=== PATIENT | female | born 1955 | race Caucasian/White ===

== ENCOUNTER → 2018-04-08 12:27 | Outpatient (CLI) | payer OTHER, SELFPAY ==
--- NOTE | 2018-04-08 12:29 | DI.RAD.S_ITS ---
PROCEDURE: XR WRIST LT MIN 3V INDICATIONS: left wrist pain. S/P GLF earlier today,query radial head Fx TECHNIQUE: 4 views of the wrist were acquired. COMPARISON: None. FINDINGS: Bones: Linear lucency traverses the distal radius, with associated bony step-off. Scaphoid view: Negative Soft tissues: No suspicious soft tissue calcifications. IMPRESSION: Mildly displaced distal radial fracture. Dictated by: Niko Wagner M.D. on 04/08/2018 at 13:02 Approved by: Niko Wagner M.D. on 04/08/2018 at 13:03
== END ==
PROVIDERS: Family Provider Physician Assistant; PCP Physician Assistant; Visit Provider Physician Assistant
DX: S52.502A Unspecified fracture of the lower end of left radius, initial encounter for closed fracture (principal)
CPT/HCPCS: 73110

== ENCOUNTER → 2018-07-03 10:31 | Outpatient (CLI) | payer OTHER, SELFPAY | PROVIDERS: Family Provider Physician Assistant; PCP Physician Assistant; Visit Provider Orthopaedic Surgery | DX: S62.102A Fracture of unspecified carpal bone, left wrist, initial encounter for closed fracture (principal); Z53.9 Procedure and treatment not carried out, unspecified reason ==

== ENCOUNTER → 2018-07-14 12:50 | Outpatient (CLI) | payer OTHER, SELFPAY ==
--- NOTE | 2018-07-14 | DI.RAD.S_ITS ---
PROCEDURE: FL FLUOROSCOPY >1HR COMPARISON: [facility] [place], CR, XR WRIST 3+ VIEWS LEFT, 06/14/2018, 14:02. INDICATIONS: LEFT WRIST FRACTURE FINDINGS: The patient was here for a wrist MR arthrogram. Informed consent was obtained. The patient was placed on the floor table in prone position. The radioscaphoid joint was localized under fluoroscopy. The needle entry site was prepped and draped in sterile fashion. 1% lidocaine was used for local anesthesia. After preparation and before needle placement, the patient changed her mind. She will discuss with her doctor before deciding if she wants to have this test. IMPRESSION: Contrast injection was canceled at the patient's request. Dictated by: Jazzmine Perez M.D. on 07/14/2018 at 14:00 Approved by: Jazzmine Perez M.D. on 07/14/2018 at 14:04
== END ==
PROVIDERS: Family Provider Physician Assistant; PCP Physician Assistant; Visit Provider Orthopaedic Surgery
DX: S62.102A Fracture of unspecified carpal bone, left wrist, initial encounter for closed fracture (principal)
CPT/HCPCS: 76000

== ENCOUNTER → 2021-03-16 13:36 | Outpatient (CLI) | payer OTHER, SELFPAY ==
[2021-03-16 14:56] LABS: COVID19 -Nasal RAPID Negative (Negative)
== END ==
PROVIDERS: Family Provider Physician Assistant; PCP Internal Medicine; Visit Provider Nurse Practitioner Family
DX: Z20.822 Contact with and (suspected) exposure to COVID-19 (principal); R09.81 Nasal congestion; R09.89 Other specified symptoms and signs involving the circulatory and respiratory systems
CPT/HCPCS: 87635

== ENCOUNTER 2021-05-12 11:25 | Emergency (ER) | payer OTHER, SELFPAY ==
[2021-05-12 11:35] VITALS: BP 189/87; PULSE 98; RESP 14; TEMP 36.6; O2SAT 98; BMI 25.8
--- NOTE | 2021-05-12 11:59 | DI.RAD.S_ITS ---
PROCEDURE: XR RIBS RT MIN 3V W CXR 1V INDICATIONS: fall down flight of stairs TECHNIQUE: 2 views of the right ribs were acquired, along with a single view chest. COMPARISON: None. FINDINGS: Surgical changes and devices: None. Bones and chest wall: Right 6th and 7th rib fractures. Comminuted fracture of the distal right clavicle. No suspicious bony lesions. Overlying soft tissues appear unremarkable. Lungs and pleura: No pleural effusions or pneumothorax. Lungs appear clear. Mediastinum: Mediastinal contours appear normal. Heart size is normal. IMPRESSION: Right 6th and 7th rib fractures. Right clavicle fracture. Dictated by: Hillary Lopez MD, PhD on 05/12/2021 at 12:26 Approved by: Hillary Lopez MD, PhD on 05/12/2021 at 12:27
--- NOTE | 2021-05-12 12:02 | DI.RAD.S_ITS ---
PROCEDURE: XR SHOULDER RT MIN 2V INDICATIONS: fell down a flight of stairs TECHNIQUE: 2 views of the shoulder were acquired. COMPARISON: None. FINDINGS: Bones: Comminuted fracture of the distal right clavicle. Moderate glenohumeral joint osteoarthritis. No suspicious bony lesions. Visualized ribs appear intact. Soft tissues: No suspicious soft tissue calcifications. IMPRESSION: Segmented, displaced distal right clavicle fracture Dictated by: Hillary Lopez MD, PhD on 05/12/2021 at 12:27 Approved by: Hillary Lopez MD, PhD on 05/12/2021 at 12:28
--- NOTE | 2021-05-12 12:02 | DI.RAD.S_ITS ---
PROCEDURE: XR CLAVICLE RT INDICATIONS: fell down a flight of stairs TECHNIQUE: 2 views of the clavicle were acquired. COMPARISON: None. FINDINGS: Bones: Comminuted fracture of the distal clavicle. Soft tissues: No suspicious soft tissue calcifications. IMPRESSION: Distal right clavicle fracture. Dictated by: Hillary Lopez MD, PhD on 05/12/2021 at 12:25 Approved by: Hillary Lopez MD, PhD on 05/12/2021 at 12:26
--- NOTE | 2021-05-12 12:23 | DI.CT.S_ITS ---
PROCEDURE: CT HEAD/BRAIN WO CON INDICATIONS: fall TECHNIQUE: Noncontrast 4.5 mm thick angled axial sections acquired from the foramen magnum to the vertex, with coronal and sagittal reformats. For radiation dose reduction, the following was used: automated exposure control, adjustment of mA and/or kV according to patient size. COMPARISON: [facility], CT, CT FACIAL BONES WO CON, 05/12/2021, 12:32. FINDINGS: Image quality: Excellent. CSF spaces: Basal cisterns are patent. No extra-axial fluid collections. The ventricles are symmetric in size and shape. Brain: No intracranial bleeds or masses. There is cerebral volume loss for age, with resultant ventricular and sulcal prominence. There are periventricular and deep white matter chronic small vessel ischemic changes. There is intracranial internal carotid artery atherosclerosis. Skull and face: Calvarium is intact. There is a mildly depressed fracture of the right orbital floor which is depressed inferiorly by roughly 4 mm. There is no evidence of extraocular muscular entrapment. Sinuses: Air-fluid level within the right maxillary sinus is present. IMPRESSION: 1. No acute intracranial abnormality. 2. Right orbital floor blowout fracture without evidence of extraocular muscle entrapment. Dictated by: Niko Wagner M.D. on 05/12/2021 at 12:45 Approved by: Niko Wagner M.D. on 05/12/2021 at 12:47
--- NOTE | 2021-05-12 12:23 | DI.CT.S_ITS ---
PROCEDURE: CT CERVICAL SPINE WO CON INDICATIONS: fall yesterday TECHNIQUE: Noncontrast 3 mm thick sections acquired from the skull base to the T4 level. Sagittal and coronal reformats were then constructed. For radiation dose reduction, the following was used: automated exposure control, adjustment of mA and/or kV according to patient size. COMPARISON: None. FINDINGS: Image quality: Excellent. Bones: No fractures or subluxation. There is straightening of the cervical lordosis. Minimal anterolisthesis is demonstrated at C3-C4 and C7-T1. There is minimal retrolisthesis at C5-C6. Moderate degenerative disc disease is demonstrated within the mid to lower cervical spine at C4-C5, C5-C6 and C6-C7 with associated endplate sclerosis, osteophytosis, and uncovertebral joint arthropathy. There is multilevel facet arthropathy including moderate degeneration at C7-T1. Visualized superior ribs are intact. Soft tissues: Prevertebral soft tissues are normal in thickness. No paravertebral hematomas. No apical pneumothoraces. IMPRESSION: 1. No fracture or subluxation. 2. Straightening of the cervical lordosis with multilevel minimal spondylolisthesis. 3. Multilevel degenerative changes including moderate degenerative disc disease in the mid and lower cervical spine. Dictated by: Gilberto Noble M.D. on 05/12/2021 at 12:43 Approved by: Gilberto Noble M.D. on 05/12/2021 at 12:47
--- NOTE | 2021-05-12 12:26 | DI.CT.S_ITS ---
PROCEDURE: CT FACIAL BONES WO CON INDICATIONS: fall RIGHT FACE AREA NOSE BLEED TECHNIQUE: Noncontrast 2.5 mm thick axial images acquired from the mandible through the frontal sinuses, with coronal and sagittal reformatting. For radiation dose reduction, the following was used: automated exposure control, adjustment of mA and/or kV according to patient size. COMPARISON: None. FINDINGS: Image quality: Excellent. Bones and teeth: There is a mildly depressed fracture of the right orbital floor which is disc pressed inferiorly by roughly 4 mm laterally. No evidence of associated extraocular muscle entrapment. Nasal bones and septum are intact. Visualized portions of the mandible demonstrate no fractures or subluxation. Zygomatic arches are intact. Pterygoid plates are intact. Visualized portions of the skull base and auditory canals are intact. Sinuses: Air-fluid level within the right maxillary sinus. Right middle turbinate barbara bullosa. Leftward nasal septum deviation. Mastoid air cells are aerated. Soft tissues: No edema, masses, or fluid collections. No enlarged lymph nodes. No soft tissue lacerations or debris. Vascular: Visualized vascular structures appear normal in the absence of contrast. Bony vascular foramina and canals are intact. IMPRESSION: 1. Right orbital floor blowout fracture without extraocular muscle entrapment. 2. Right maxillary sinus fluid. Dictated by: Niko Wagner M.D. on 05/12/2021 at 12:47 Approved by: Niko Wagner M.D. on 05/12/2021 at 12:49
--- NOTE | 2021-05-12 12:58 | ED_ITS ---
HPI - Fall General Chief Complaint: Trauma Stated Complaint: Poss broken right shoulder/ribs, fell down stairs Time Seen by Provider: 05/12/21 12:50 Source: patient Mode of arrival: Ambulatory History of Present Illness HPI Narrative: Patient is a healthy 65-year-old female who presents after a fall. She says last night she was walking down the stairs with blankets because her pipes froze and heat got turned off, she was carrying blankets when she tripped and fell down half of the staircase at least 4-5 stairs. Landed mostly on her right side. No loss of consciousness. She is not on any anti-platelet or anticoagulation medication. No numbness tingling or weakness. She does have periorbital contusion on the right side but no blurry vision or double vision. Complaining mostly of right shoulder pain. She is also having some right rib pain and hurts to breathe She is ambulatory. Related Data Home Medications Medication Instructions Recorded Confirmed MULTIVITAMIN (Multivitamin #0 08/17/03 04/08/18 -) [VIT C] #0 08/17/03 04/08/18 Previous Rx's Medication Instructions Recorded hydrocodone 5 mg-acetaminophen 325 1 tab PO Q6H PRN #14 tab 05/12/21 mg tablet Allergies Allergy/AdvReac Type Severity Reaction Status Date / Time codeine Allergy Verified 05/12/21 11:45 Review of Systems Review of Systems Narrative: GENERAL: Denies chills, fatigue, malaise, fever, sweats, travel HEENT: Denies sinus pain, ear pain, sore throat, difficulty swallowing, neck pain RESPIRATORY: Denies dyspnea, cough, wheezing, hemoptysis, sputum. CARDIOVASCULAR: Denies chest pain, palpitations, orthopnea, edema GASTROINTESTINAL: Denies nausea, vomiting, abdominal pain, diarrhea, constipation, melena. : Denies dysuria, frequency, incontinence, hematuria, urinary retention, flank pain. MUSCULOSKELETAL: See HPI SKIN: No rash, no erythema, no pruritus NEUROLOGIC: Denies weakness, dizziness, headache, numbness, change in speech, confusion PSYCHIATRIC: No concerning psychosocial issues. 12 point review of systems is negative except for those stated above and HPI Patient History Social History Smoking Status: Never smoker Smoking Status: Never smoker alcohol intake frequency: 0-2 drinks per day Substance Use Type: does not use Exam Initial Vital Signs Initial Vital Signs: Vital Signs Temperature 97.9 F 05/12/21 11:35 Pulse Rate 98 H 05/12/21 11:35 Respiratory Rate 14 05/12/21 11:35 Blood Pressure 189/87 H 05/12/21 11:35 Pulse Oximetry 98 05/12/21 11:35 GENERAL: Well-appearing, well-nourished and in no acute distress. HEENT: Head atraumatic, right periorbital swelling extraocular muscles are intact no step-offs NECK: No vertebral tenderness no step-off full flexion extension and rotation CARDIOVASCULAR: Regular rate and rhythm without murmurs, rubs or gallops. RESPIRATORY: Breath sounds equal bilaterally, no wheezes rales or rhonchi. Tender ribs no paradoxical movement no continue ABDOMEN: Soft, nontender. Normoactive bowel sounds all 4 quadrants. No guarding or rebound. EXTREMITIES: Normal range of motion, no clubbing or edema. Neurovascularly intact. Pelvis stable Right upper extremity all step-off no tenting of skin shoulder pain NEUROLOGICAL: Alert and oriented x4.Normal gait and speech. SKIN: Warm, dry, no laceration, no petechiae, no rashes or lesions. Course Orders Ordered: ED Orders 05/12/21 11:59 XR ribs RT min 3V w CXR1V Stat 05/12/21 12:02 XR clavicle RT Stat XR shoulder RT min 2V Stat 05/12/21 12:23 CT cervical spine wo con Stat CT head/brain wo con Stat 05/12/21 12:26 CT facial bones wo con Stat Vital Signs Vital signs: Vital Signs - 8 hr 05/12/21 15:20 Pulse Rate 85 Blood Pressure 169/91 H Pulse Oximetry 96 MDM - Fall Imaging Data CT scan - head: Radiologist's Impression: PROCEDURE:? CT HEAD/BRAIN WO CON ? INDICATIONS:? fall ? TECHNIQUE:? Noncontrast 4.5 mm thick angled axial sections acquired from the foramen magnum to the vertex, with coronal and sagittal reformats.? For radiation dose reduction, the following was used:? automated exposure control, adjustment of mA and/or kV according to patient size.? ? COMPARISON:? [facility]ated [facility], CT, CT FACIAL BONES WO CON, 05/12/2021, 12:32. ? FINDINGS:? Image quality:? Excellent.? ? CSF spaces:? Basal cisterns are patent.? No extra-axial fluid collections.? The ventricles are symmetric in size and shape.? ? Brain:? No intracranial bleeds or masses.? There is cerebral volume loss for age, with resultant ventricular and sulcal prominence.? There are periventricular and deep white matter chronic small vessel ischemic changes.? There is intracranial internal carotid artery atherosclerosis.? ? Skull and face:? Calvarium is intact.? There is a mildly depressed fracture of the right orbital floor which is depressed inferiorly by roughly 4 mm.? There is no evidence of extraocular muscular entrapment. ? Sinuses:? Air-fluid level within the right maxillary sinus is present. ? IMPRESSION:? 1. No acute intracranial abnormality. 2. Right orbital floor blowout fracture without evidence of extraocular muscle entrapment.? ? ? Dictated by: Niko Wagner M.D. on 05/12/2021 at 12:45 ? ? CT - cervical spine: Radiologist's Impression: PROCEDURE:? CT CERVICAL SPINE WO CON ? INDICATIONS:? fall yesterday ? TECHNIQUE:? Noncontrast 3 mm thick sections acquired from the skull base to the T4 level.? Sagittal and coronal reformats were then constructed.? For radiation dose reduction, the following was used:? automated exposure control, adjustment of mA and/or kV according to patient size.? ? COMPARISON:? None. ? FINDINGS:? Image quality:? Excellent.? ? Bones:? No fractures or subluxation.? There is straightening of the cervical lordosis.? Minimal anterolisthesis is demonstrated at C3-C4 and C7-T1.? There is minimal retrolisthesis at C5-C6.? Moderate degenerative disc disease is demonstrated within the mid to lower cervical spine at C4-C5, C5-C6 and C6-C7 with associated endplate sclerosis, osteophytosis, and uncovertebral joint arthropathy.? There is multilevel facet arthropathy including moderate degeneration at C7-T1.? Visualized superior ribs are intact.? ? Soft tissues:? Prevertebral soft tissues are normal in thickness.? No paravertebral hematomas.? No apical pneumothoraces.? ? IMPRESSION:? ? 1. No fracture or subluxation. ? 2. Straightening of the cervical lordosis with multilevel minimal spondylolisthesis. ? 3. Multilevel degenerative changes including moderate degenerative disc disease in the mid and lower cervical spine.? Dictated by: Gilberto Noble M.D. on 05/12/2021 at 12:43 ? ? CT facial: Radiologist's Impression: PROCEDURE:? CT FACIAL BONES WO CON ? INDICATIONS:? fall RIGHT FACE? AREA NOSE BLEED ? TECHNIQUE:? Noncontrast 2.5 mm thick axial images acquired from the mandible through the frontal sinuses, with coronal and sagittal reformatting.? For radiation dose reduction, the following was used:? automated exposure control, adjustment of mA and/or kV according to patient size.? ? COMPARISON:? None. ? FINDINGS:? Image quality:? Excellent.? ? Bones and teeth:? There is a mildly depressed fracture of the right orbital floor which is disc pressed inferiorly by roughly 4 mm laterally.? No evidence of associated extraocular muscle entrapment.? Nasal bones and septum are intact.? Visualized portions of the mandible demonstrate no fractures or subluxation.? Zygomatic arches are intact.? Pterygoid plates are intact.? Visualized portions of the skull base and auditory canals are intact.? ? Sinuses:? Air-fluid level within the right maxillary sinus.? Right middle turbinate barbara bullosa.? Leftward nasal septum deviation.? Mastoid air cells are aerated.? ? Soft tissues:? No edema, masses, or fluid collections.? No enlarged lymph nodes.? No soft tissue lacerations or debris.? ? Vascular:? Visualized vascular structures appear normal in the absence of contrast.? Bony vascular foramina and canals are intact.? ? IMPRESSION:? 1. Right orbital floor blowout fracture without extraocular muscle entrapment. 2. Right maxillary sinus fluid. ? ? Dictated by: Niko Wagner M.D. on 05/12/2021 at 12:47 ?? Extremity x-ray #1: Radiologist's Impression: PROCEDURE:? XR RIBS RT MIN 3V W CXR 1V ? INDICATIONS:? fall down flight of stairs ? TECHNIQUE: 2 views of the right ribs were acquired, along with a single view chest.? ? COMPARISON:? None. ? FINDINGS:? ? Surgical changes and devices:? None.? ? Bones and chest wall:? Right 6th and 7th rib fractures.? Comminuted fracture of the distal right clavicle.? No suspicious bony lesions.? Overlying soft tissues appear unremarkable.? ? Lungs and pleura:? No pleural effusions or pneumothorax.? Lungs appear clear.? ? Mediastinum:? Mediastinal contours appear normal.? Heart size is normal.? ? IMPRESSION:? Right 6th and 7th rib fractures.? Right clavicle fracture. ? ? Dictated by: Hillary Lopez MD, PhD on 05/12/2021 at 12:26 ? ? Extremity x-ray #2: Radiologist's Impression: PROCEDURE:? XR CLAVICLE RT ? INDICATIONS:? fell down a flight of stairs ? TECHNIQUE:? 2 views of the clavicle were acquired.? ? COMPARISON:? None. ? FINDINGS:? ? Bones:? Comminuted fracture of the distal clavicle. ? Soft tissues:? No suspicious soft tissue calcifications.? ? IMPRESSION:? Distal right clavicle fracture. ? ? Dictated by: Hillary Lopez MD, PhD on 05/12/2021 at 12:25 ? ? Approved by: Hillary Lopez MD, PhD on 05/12/2021 at 12:26 ? Extremity x-ray #3: Radiologist's Impression: PROCEDURE:? XR SHOULDER RT MIN 2V ? INDICATIONS:? fell down a flight of stairs ? TECHNIQUE:? 2 views of the shoulder were acquired.? ? COMPARISON:? None. ? FINDINGS:? ? Bones:? Comminuted fracture of the distal right clavicle.? Moderate glenohumeral joint osteoarthritis.? No suspicious bony lesions.? Visualized ribs appear intact.? ? Soft tissues:? No suspicious soft tissue calcifications.? ? IMPRESSION:? Segmented, displaced distal right clavicle fracture ? ? Dictated by: Hillary Lopez MD, PhD on 05/12/2021 at 12:27 ? ? Approved by: Hillary Lopez MD, PhD on 05/12/2021 at 12:28 ? MDM Narrative Medical decision making narrative: Patient is found to have a right inferior orbital fracture with 4 mm displacement. She has no evidence of entrapment she is able to open her eye completely. No visual disturbance. She also sign of clavicle fracture along with 2 rib fractures. Multiple phone calls to , ultimately patient does need to follow up with [facility] I have called and spoken [facility], they have been given his information, [place] to follow up in 2 weeks Patient is given incentive spirometer for the rib fractures Discharge Plan Departure Patient Disposition: Home Clinical Impression: Fracture of clavicle, right, closed, Multiple rib fractures, Closed blow-out fracture of right orbital floor Instructions: Clavicle Fracture, DI for Rib Fracture, DI for Orbital Fracture Activity Restrictions/Additional Instructions: *You have been diagnosed with clavicle fracture, right orbital blowout fracture, rib fractures 6 and 7 *What to do: You will need to follow up with Ophthalmology for possible surgery of your right eye. They will call to schedule this for you in about 2 weeks. Do not blow nose only dab Keep right arm in sling Use incentive spirometer 10 times every hour to help prevent pneumonia *Continue to take medications as directed [place] 1 tablet every 6 hours needed for severe pain *Follow up with your primary care provider in 2-3 days Call Orthopedics to schedule follow-up for clavicle fracture Ophthalmology clinic at [facility] [phone] or call [phone] *Return to ER if you should have increasing pain, increasing shortness of breath, blurry vision, double vision numbness tingling or weakness or any new, worsening or concerning symptoms CONTROLLED SUBSTANCE DISCHARGE (Narcotoic/benzodiazepine/Flexeril/Phenergan) 1. You have been prescribed narcotic medications, it does have acetaminophen/Tylenol/paracetamol in it, DO NOT TAKE MORE THAN 4,00mg in 24 hours of Tylenol. TRAMADOL DOES NOT CONTAIN TYLENOL 2. Please understand that we cannot provide further refills of narcotics, benzodiazepines or controlled substances through the ED and her pain management will need to be through your provider. 3. While on these medications you cannot drive or operate heavy machinery. 4. You cannot sign legal documents or perform any duties such as this. 5. As long as you're taking opiate pain medications he should also be taking a stool softener such as Colace, Dulcolax, MiraLAX or prune juice, to help avoid constipation. Prescriptions: New hydrocodone-acetaminophen 5-325 mg tablet 1 tab PO Q6H PRN (Reason: pain) Qty: 14 0RF No Action MULTIVITAMIN (Multivitamin -) Qty: 0 0RF [VIT C] Qty: 0 0RF Referrals: [facility] [Provider Group] Roosevelt Gardner MD [Primary Care Provider] -
--- NOTE | 2021-05-12 13:38 | PC.NURSE ---
pt has bruising between rt shoulder and clavicle.
--- NOTE | 2021-05-12 15:19 | PC.NURSE ---
Education for incentive spirometry performed by RT. Reinforced education with patient at discharge.
[2021-05-12 15:20] VITALS: BP 169/91; PULSE 85; O2SAT 96
--- NOTE | 2021-05-14 08:43 | PC.NURSE ---
Patient called this morning stating [facility] was unable to see her and she is having new/worsening eye symptoms. This RN called [facility] scheduling and advised the gaming host that pt needed to be seen in the very near future. [facility] advised this RN that they are scheduled out to September but a request had been placed directly with the eye center to work patient in earlier. Advised to wait for [facility] to contact pt in the next 24-72 hrs. Our provider paged the transfer center to have a to to expedite appointment. Advised pt to go to [facility] ED for new/worsening symptoms.
--- NOTE | 2021-05-16 10:22 | PC.NURSE ---
Patient called needing prescription for pain medication sent to another pharmacy. Dr. Edge reviewed and sent script to [facility].
== END 2021-05-12 15:20 | disposition home or self-care (01) ==
PROVIDERS: Emergency Provider Emergency Medicine; Family Provider Physician Assistant; PCP Internal Medicine
DX: S42.031A Displaced fracture of lateral end of right clavicle, initial encounter for closed fracture (principal); S22.41XA Multiple fractures of ribs, right side, initial encounter for closed fracture; S02.31XA Fracture of orbital floor, right side, initial encounter for closed fracture; W10.9XXA Fall (on) (from) unspecified stairs and steps, initial encounter
CPT/HCPCS: 70450; 70486; 71101; 72125; 73000; 73030; 99284

== ENCOUNTER 2021-05-18 17:58 | Emergency (ER) | payer OTHER, SELFPAY ==
[2021-05-18 18:51] VITALS: BP 190/99; PULSE 89; RESP 20; TEMP 37.1; O2SAT 98; BMI 24.8
== END 2021-05-18 19:54 | disposition left against medical advice (07) ==
PROVIDERS: Emergency Provider Emergency Medicine; Family Provider Physician Assistant; PCP Internal Medicine
DX: Z53.21 Procedure and treatment not carried out due to patient leaving prior to being seen by health care provider (principal)
CPT/HCPCS: 99281

== ENCOUNTER → 2021-07-01 10:48 | Outpatient (CLI) | payer OTHER, SELFPAY | PROVIDERS: Family Provider Physician Assistant; PCP Internal Medicine; Referring Provider Internal Medicine; Visit Provider Internal Medicine | DX: Z13.820 Encounter for screening for osteoporosis (principal); M85.88 Other specified disorders of bone density and structure, other site; Z78.0 Asymptomatic menopausal state; E07.9 Disorder of thyroid, unspecified; Z82.62 Family history of osteoporosis | CPT/HCPCS: 77080 ==

== ENCOUNTER 2022-02-15 13:10 | Emergency (ER) | payer OTHER, SELFPAY ==
[2022-02-15 13:14] VITALS: PULSE 78; RESP 18; TEMP 36.4; O2SAT 99
--- NOTE | 2022-02-15 13:17 | DI.RAD.S_ITS ---
PROCEDURE: XR CHEST 2V INDICATIONS: cough, COVID+ TECHNIQUE: 2 views of the chest were acquired. COMPARISON: None. FINDINGS: Surgical changes and devices: None. Lungs and pleura: Lungs are clear. No pleural effusions or pneumothorax. Mediastinum: Mediastinal contours are normal. Heart size is normal. Bones and chest wall: No suspicious bony abnormalities. Age-appropriate bony degenerative changes are seen. Accentuated thoracic kyphosis is seen. Mild dextroconvex scoliotic curvature is seen. Soft tissues appear unremarkable. IMPRESSION: Clear lungs, without infiltrates. If there is clinical concern for a developing pulmonary process, a short-term followup chest series (with PA and lateral views, performed in deep inspiration) is suggested for further evaluation. Dictated by: Thien Pacheco M.D. on 02/15/2022 at 12:50 Approved by: Thien Pacheco M.D. on 02/15/2022 at 12:54
[2022-02-15] MEDS: VALSARTAN 80 MG TABLET PO (14:03)
[2022-02-15 15:47] VITALS: BP 202/100; PULSE 73; RESP 22; O2SAT 99
[2022-02-15] MEDS: hydrOXYzine pamoate 25 MG CAPSULE PO (17:21)
[2022-02-15 17:22] VITALS: BP 189/99; PULSE 67; RESP 18; O2SAT 98
--- NOTE | 2022-02-15 17:43 | ED.URI ---
HPI - URI/Sore Throat <Veronique Mota, [facility] - Last Filed: 02/15/22 18:06> General Chief Complaint: Upper Respiratory Symptoms Stated Complaint: COVID + Time Seen by Provider: 02/15/22 16:06 Source: patient Mode of arrival: Ambulatory History of Present Illness HPI Narrative: This is a 66-year-old female without significant medical history who presents to the emergency complaining of COVID positive test yesterday, she states that she is very anxious and stressed out that she exposed her elderly parents over the weekend to COVID and she returned home yesterday and tested positive at the airport for to home. Patient denies any shortness of breath, chest pain, dizziness, weakness. She endorses congestion, phlegm when she coughs, denies fever, denies history of asthma, COPD, smoking, diabetes, hypertension or other significant illness. She is COVID vaccinated and boosted, states last vaccine was in October 2020. She denies nausea, vomiting, diarrhea. 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 Patient also states that she had elevated blood pressure this morning, states it was over 200 systolic, she was very anxious about it and has not taken her prescribed antihypertensive, valsartan 80 mg yet today. She states she has not been taking it lately, she endorses that she is under lot of stress. Related Data Home Medications Medication Instructions Recorded Confirmed MULTIVITAMIN (Multivitamin ##0 08/17/03 04/08/18 -) [VIT C] ##0 08/17/03 04/08/18 Previous Rx's Medication Instructions Recorded hydrocodone 5 mg-acetaminophen 325 1 tab PO Q6H PRN pain #14 tabs 05/12/ mg tablet hydrocodone 5 mg-acetaminophen 325 1 tab PO BEDTIME PRN pain #14 tabs 05/14/21 mg tablet hydrocodone 5 mg-acetaminophen 325 1 tab PO BEDTIME PRN pain #14 tabs 05/14/ mg tablet ondansetron 4 mg disintegrating 4 mg PO Q8H PRN nausea and 05/14/21 tablet vomiting #20 tabs ondansetron 4 mg disintegrating 4 mg PO Q8H PRN nausea and 05/14/21 tablet vomiting #20 tabs loratadine 10 mg chewable tablet 10 mg PO Q12H PRN congestion #20 02/15/22 (Claritin) tabs lorazepam 1 mg tablet 0.5 mg PO Q4HR PRN anxiety #10 tabs 02/15/22 Allergies Allergy/AdvReac Type Severity Reaction Status Date / Time codeine Allergy Verified 05/18/21 18:51 Review of Systems <TRENTON Montes De Oca - Last Filed: 02/15/22 18:06> Review of Systems Narrative: Review of systems is negative for acute abnormalities unless otherwise noted in HPI Patient History <TRENTON Montes De Oca - Last Filed: 02/15/22 18:06> Social History Smoking Status: Never smoker Smoking Status: Never smoker alcohol intake frequency: 0-2 drinks per day Substance Use Type: does not use Exam <TRENTON Montes De Oca - Last Filed: 02/15/22 18:06> Narrative Exam Narrative: Reviewed vitals signs and nursing notes. General: cooperative, comfortable, in no acute distress, well groomed HEENT: symmetrical facial expressions, moist mucous membranes Cardiovascular: regular rate and rhythm, no peripheral edema, warm extremities, hypertensive Respiratory: normal effort, able to speak in complete sentences, without wheezing, stridor, or abnormal breath sounds. No retractions or tachypnea. GI: abdomen soft, nontender to palpation, nondistended, without masses, rebound tenderness or exquisite tenderness with exam. MSK: moves all extremities, neurovascularly intact, no weakness, normal tone Skin: brisk capillary refill, without pallor or erythema Neuro: normal speech and cognition, A&O x3, ambulatory, clear speech without Neuro deficits Psych: mental status is grossly normal, congruent mood, anxious affect, pleasant and cooperative Initial Vital Signs Initial Vital Signs: Vital Signs Temperature 97.5 F L 02/15/22 13:14 Pulse Rate 78 02/15/22 13:14 Respiratory Rate 18 02/15/22 13:14 Pulse Oximetry 99 02/15/22 13:14 Oxygen Delivery Method 02/15/22 13:14 <Hannah Edge MD - Last Filed: 02/15/22 18:49> Initial Vital Signs Initial Vital Signs: Vital Signs Temperature 97.5 F L 02/15/22 13:14 Pulse Rate 78 02/15/22 13:14 Respiratory Rate 18 02/15/22 13:14 Pulse Oximetry 99 02/15/22 13:14 Oxygen Delivery Method 02/15/22 13:14 Course <TRENTON Montes De Oca - Last Filed: 02/15/22 18:06> Orders Ordered: ED Orders 02/15/22 13:17 Chest [XR chest 2V] Stat Discontinued Medications Hydroxyzine Pamoate (Hydroxyzine Pamoate 25 Mg Capsule) 25 mg PO NOW ONE Stop: 02/15/22 16:45 Last Admin: 02/15/22 17:21 Dose: 25 mg Documented By: DONNY Valsartan (Valsartan 80 Mg Tablet) 80 mg PO NOW ONE Stop: 02/15/22 13:47 Last Admin: 02/15/22 14:03 Dose: 80 mg Documented By: DONNY Vital Signs Vital signs: Vital Signs - 8 hr 02/15/22 13:14 02/15/22 15:47 02/15/22 17:22 Temperature 97.5 F L Pulse Rate 78 73 67 Respiratory Rate 18 22 18 Blood Pressure 202/100 H 189/99 H Pulse Oximetry 99 99 98 Oxygen Delivery Method Room Air Room Air Room Air <Hannah Edge MD - Last Filed: 02/15/22 18:49> Orders Ordered: ED Orders 02/15/22 13:17 Chest [XR chest 2V] Stat Discontinued Medications Hydroxyzine Pamoate (Hydroxyzine Pamoate 25 Mg Capsule) 25 mg PO NOW ONE Stop: 02/15/22 16:45 Last Admin: 02/15/22 17:21 Dose: 25 mg Documented By: DONNY Valsartan (Valsartan 80 Mg Tablet) 80 mg PO NOW ONE Stop: 02/15/22 13:47 Last Admin: 02/15/22 14:03 Dose: 80 mg Documented By: DONNY Vital Signs Vital signs: Vital Signs - 8 hr 02/15/22 13:14 02/15/22 15:47 02/15/22 17:22 Temperature 97.5 F L Pulse Rate 78 73 67 Respiratory Rate 18 22 18 Blood Pressure 202/100 H 189/99 H Pulse Oximetry 99 99 98 Oxygen Delivery Method Room Air Room Air Room Air MDM - URI/Sore Throat <Veronique Mota [facility] - Last Filed: 02/15/22 18:06> Imaging Data Chest x-ray: Radiologist's Impression: PROCEDURE:? XR CHEST 2V ? INDICATIONS:? cough, COVID+ ? TECHNIQUE:? 2 views of the chest were acquired.? ? COMPARISON:? None. ? FINDINGS:? ? Surgical changes and devices:? None.? ? Lungs and pleura:? Lungs are clear.? No pleural effusions or pneumothorax.? ? Mediastinum:? Mediastinal contours are normal.? Heart size is normal.? ? Bones and chest wall:? No suspicious bony abnormalities.? Age-appropriate bony degenerative changes are seen.? Accentuated thoracic kyphosis is seen.? Mild dextroconvex scoliotic curvature is seen. ? ? Soft tissues appear unremarkable.? ? ? IMPRESSION:? Clear lungs, without infiltrates. ? If there is clinical concern for a developing pulmonary process, a short-term followup chest series (with PA and lateral views, performed in deep inspiration) is suggested for further evaluation. ? ? ? Dictated by: Thien Pacheco M.D. on 02/15/2022 at 12:50 ? ? Approved by: Thien Pacheco M.D. on 02/15/2022 at 12:54 ? [facility] Narrative Medical decision making narrative: This is a 61-year-old female without significant medical history who presents to the emergency department after testing COVID (+) yesterday, she is on day 2 of symptoms without hypoxia, respiratory distress, dehydration, or focal exam to suggest secondary bacterial infection. Discussed CDC guidelines for quarantine, mask wearing, physical distancing, and infection prevention measures such as frequent handwashing. Discussed supportive treatments: Tylenol/Motrin as needed for pain/fever. OTC decongestant medications and/or antihistamines for symptomatic relief. Maintain adequate fluid intake. This has hypertension, encouraged to your medications as prescribed, I gave her a short prescription of lorazepam to use as needed for anxiety and muscle aches. She has not been taking her antihypertensive and now she has, her blood pressure has come down to systolic of 180s, I anticipate this will also go down when she goes home and can take a lorazepam and relax for the evening. Follow-up with PCP as directed. Return to clinic/ER instructions discussed for new, not improving, or worsening symptoms. All questions answered. Discharge Plan Departure Patient Disposition: Home Clinical Impression: COVID-19, Anxiety Hypertension Qualifiers: Hypertension type: unspecified Qualified Code(s): I10 - Essential (primary) hypertension Instructions: COVID-19 Activity Restrictions/Additional Instructions: *You have been diagnosed with COVID-19. Today is day 2 of your symptoms, please stay hydrated, rest take deep breaths and do not blame yourself for exposing her parents. This can happen to anyone and does every day. I am sorry that you feel to blame. Your chest x-ray shows clear lungs without any signs of pneumonia, your oxygen level is perfect at 100% and her heart rate is nice and slow. Please take Tylenol 650 mg every 6 hours as needed for pain, you may take ibuprofen as well. For muscle aches and for anxiety, please take your 0.5-1 mg of lorazepam. Take hot showers as needed for muscle aches, take Claritin as needed for congestion and Mucinex if your cough is productive and thick. I hope you feel better soon. Please return to the emergency department if you have worsening symptoms or concerns for hospitalization, we will give you Juan ABADFREDA at that time. Thank you for trusting us with your care, I hope you feel better soon. *What to do: *Please continue to take your regular medications as directed. [ x] New medication prescriptions sent to your pharmacy: [[facility]] [ ] New medication written as a paper prescription [ ] No new medications given *Please follow up with your primary care provider in 2-3 days, call for an appointment. Let them know you were seen in the Emergency Department and that we asked that you be seen for follow-up. We will electronically transmit a record of today's note if your PCP is in our system *If you do not have a primary care provider please contact [phone] to establish care with one of the [facility] primary care providers. *Return to Emergency Department if you should have any new, worsening, or concerning symptoms, such as [fever greater than 101F, chills, worsening pain, persistent vomiting or other bothersome symptoms]. Prescriptions: New lorazepam 1 mg tablet 0.5 mg PO Q4HR PRN (Reason: anxiety) Qty: 10 0RF Claritin 10 mg tablet,chewable 10 mg PO Q12H PRN (Reason: congestion) Qty: 20 0RF No Action MULTIVITAMIN (Multivitamin -) Qty: 0 [VIT C] Qty: 0 hydrocodone-acetaminophen 5-325 mg tablet 1 tab PO Q6H PRN (Reason: pain) Qty: 14 0RF hydrocodone-acetaminophen 5-325 mg tablet 1 tab PO BEDTIME PRN (Reason: pain) Qty: 14 0RF ondansetron 4 mg tablet,disintegrating 4 mg PO Q8H PRN (Reason: nausea and vomiting) Qty: 20 0RF hydrocodone-acetaminophen 5-325 mg tablet 1 tab PO BEDTIME PRN (Reason: pain) Qty: 14 0RF ondansetron 4 mg tablet,disintegrating 4 mg PO Q8H PRN (Reason: nausea and vomiting) Qty: 20 0RF Referrals: Cornelius Bruce MD [Primary Care Provider] - Visit Report Forms: Patient Portal/API <Hannah Edge MD - Last Filed: 02/15/22 18:49> Cosign ED Attending Cosmarieature Attestation: I was immediately available in the department for consultation throughout this patient's visit. I agree with documentation as above. Hannah Edge MD
== END 2022-02-15 17:22 | disposition home or self-care (01) ==
PROVIDERS: Emergency Provider Nurse Practitioner Critical Care Medicine; Family Provider Physician Assistant; PCP Internal Medicine
DX: U07.1 COVID-19 (principal); F41.9 Anxiety disorder, unspecified; I10 Essential (primary) hypertension
CPT/HCPCS: 71046; 99283

== ENCOUNTER → 2022-10-07 17:57 | Outpatient (CLI) | payer OTHER, SELFPAY | PROVIDERS: Family Provider Physician Assistant; PCP Internal Medicine; Visit Provider Nurse Practitioner Family | DX: L98.9 Disorder of the skin and subcutaneous tissue, unspecified (principal) | CPT/HCPCS: 87070; 87075; 87205 ==

== ENCOUNTER → 2023-04-26 16:33 | Outpatient (CLI) | payer OTHER, SELFPAY ==
--- NOTE | 2023-04-26 | DI.MG.S_ITS ---
BILATERAL DIGITAL SCREENING MAMMOGRAM 3D/2D WITH CAD: 04/26/2023 CLINICAL: Routine screening. Comparison is made to exams dated: 12/14/2013 mammogram, 06/30/2011 mammogram, and 11/29/2008 mammogram - [facility]. There are scattered areas of fibroglandular density in both breasts (category b / 25%-50% glandular tissue). Current study was also evaluated with a Computer Aided Detection (CAD) system. No significant masses, calcifications, or other findings are seen in either breast. There has been no significant interval change. IMPRESSION: NEGATIVE There is no mammographic evidence of malignancy. A 1 year screening mammogram is recommended. Based on the Tyrer Cuzick model (a risk assessment model) the patient's lifetime risk is 6.6% and her 10 year risk is 3.6%. According to the ACR, ACS, and NCCN guidelines, an annual breast MRI exam along with mammogram is recommended if the patient's lifetime risk is 20% or greater. This exam was interpreted at Station ID: [id number]. NOTE: For mammograms, a report in lay terms will be sent to the patient. Approximately 15% of breast malignancies will not be visualized mammographically. In the management of a palpable breast mass, a negative mammogram must not discourage biopsy of a clinically suspicious lesion. Electronically Signed By: Lainey rizzo/caprice:04/27/2023 14:22:54 letter sent: Normal Exam ACR BI-RADS Category 1: Negative [id number]
--- NOTE | 2023-04-26 16:37 | DI.US.S_ITS ---
PROCEDURE: US PELVIC COMPLETE INDICATIONS: Pelvic pain TECHNIQUE: Real-time scanning was performed of the pelvic organs, with image documentation. Additional endovaginal scanning was necessary due to incomplete visualization of the adnexal and endometrial structures by transabdominal scanning. COMPARISON: None. FINDINGS: Uterus: Uterus is retroverted and small in size at 5.3 x 3.4 x 2.7 cm. The myometrium is heterogeneous. The endometrium measures approximately 1.5 mm. There is trace endometrial fluid with a questionable isoechoic lesion versus irregular wall at the fundus measuring 2.4 mm with no internal vascularity (series 1, image 30, 31). There are nabothian cysts. The cervix and vagina is otherwise normal. Ovaries: The ovaries are not well seen, limiting evaluation. Other: No pathologic free abdominal or pelvic fluid. IMPRESSION: 1. Uterus is retroverted and small in size measuring 5.3 x 3.4 x 2.7 cm. 2. Endometrium measures approximately 1.5 mm. Trace endometrial fluid with a questionable isoechoic lesion versus irregular wall of the fundus measuring 2.4 mm with no internal vascularity. Consider a short interval follow-up pelvic ultrasound in 3 months for further evaluation. Alternatively, an MRI of the pelvis can be performed. 3. Bilateral ovaries are not well seen, limiting evaluation. Dictated by: Mercy Santamaria M.D. on 04/27/2023 at 10:46 Approved by: Mercy Santamaria M.D. on 04/27/2023 at 10:56
== END ==
PROVIDERS: Family Provider Physician Assistant; PCP Internal Medicine; Referring Provider Obstetrics & Gynecology; Visit Provider Obstetrics & Gynecology
DX: Z12.31 Encounter for screening mammogram for malignant neoplasm of breast (principal); R10.2 Pelvic and perineal pain
CPT/HCPCS: 76830; 76856; 77063; 77067

== ENCOUNTER 2023-11-18 14:15 | Emergency (ER) | payer OTHER, SELFPAY ==
[2023-11-18] VITALS (9 sets, daily range): BP systolic 136–168; BP diastolic 67–84; PULSE 67–82; RESP 16–21; TEMP 36.8; O2SAT 91–100; BMI 25.7
--- NOTE | 2023-11-18 14:37 | DI.CT.S_ITS ---
PROCEDURE: CT FACIAL BONES WO CON INDICATIONS: fall 2 days ago on cement landed on face. TECHNIQUE: Noncontrast 2.5 mm thick axial images acquired from the mandible through the frontal sinuses, with coronal and sagittal reformatting. For radiation dose reduction, the following was used: automated exposure control, adjustment of mA and/or kV according to patient size. COMPARISON: None. FINDINGS: Image quality: Excellent. Bones and teeth: Orbital bartlett are intact. Sinus bartlett show no fracture or deformity. Nasal bones and septum are intact. Visualized portions of the mandible demonstrate no fractures or subluxation. Zygomatic arches are intact. Pterygoid plates are intact. Visualized portions of the skull base and auditory canals are intact. Sinuses: Paranasal sinuses are aerated, without fluid levels, mucosal thickening, or mucoceles. Mastoid air cells are aerated. Soft tissues: No edema, masses, or fluid collections. No enlarged lymph nodes. No soft tissue lacerations or debris. Vascular: Visualized vascular structures appear normal in the absence of contrast. Bony vascular foramina and canals are intact. IMPRESSION: No displaced facial bone fracture or mandibular fracture. Dictated by: Robert Aguiar M.D. on 11/18/2023 at 15:55 Approved by: Robert Aguiar M.D. on 11/18/2023 at 15:57
--- NOTE | 2023-11-18 14:37 | DI.CT.S_ITS ---
PROCEDURE: CT HEAD/BRAIN WO CON INDICATIONS: fall 2 days ago on cement landed on face. TECHNIQUE: Noncontrast 4.5 mm thick angled axial sections acquired from the foramen magnum to the vertex, with coronal and sagittal reformats. For radiation dose reduction, the following was used: automated exposure control, adjustment of mA and/or kV according to patient size. COMPARISON: None. FINDINGS: Image quality: Diagnostic. CSF spaces: Basal cisterns are patent. No extra-axial fluid collections. The ventricles are symmetric in size and shape. Brain: No intracranial bleeds or masses. There is cerebral volume loss for age, with resultant ventricular and sulcal prominence. There are periventricular and deep white matter chronic small vessel ischemic changes. There is intracranial internal carotid artery atherosclerosis. Skull and face: Calvarium and visualized facial bones appear intact, without suspicious lesions. Sinuses: Visualized sinuses and mastoids are clear. IMPRESSION: No acute intracranial pathology. Dictated by: Robert Aguiar M.D. on 11/18/2023 at 15:53 Approved by: Robert Aguiar M.D. on 11/18/2023 at 15:54
--- NOTE | 2023-11-18 14:37 | DI.CT.S_ITS ---
PROCEDURE: CT CERVICAL SPINE WO CON INDICATIONS: fall 2 days ago on cement landed on face. TECHNIQUE: Noncontrast 3 mm thick sections acquired from the skull base to the T4 level. Sagittal and coronal reformats were then constructed. For radiation dose reduction, the following was used: automated exposure control, adjustment of mA and/or kV according to patient size. COMPARISON: None. FINDINGS: Image quality: Excellent. Bones: No fractures or dislocations. Visualized superior ribs are intact. Cervical spondylosis is centered at C4-C5 through C6-C7. Chronic disc height loss and posterior disc post osteophyte plus uncovertebral joint hypertrophy. There is bilateral bony foraminal narrowing at all of these levels. Soft tissues: Prevertebral soft tissues are normal in thickness. No paravertebral hematomas. No apical pneumothoraces. IMPRESSION: 1. No acute cervical fracture or dislocation. 2. Cervical Cervical spondylosis. Dictated by: Robert Aguiar M.D. on 11/18/2023 at 15:51 Approved by: Robert Aguiar M.D. on 11/18/2023 at 15:53
--- NOTE | 2023-11-18 17:23 | ED_ITS ---
HPI - Fall General Chief Complaint: Fall Stated Complaint: fell, hit head,dizziness t-2 Time Seen by Provider: 11/18/23 17:19 Source: patient, RN notes reviewed and old records reviewed Mode of arrival: Ambulatory Limitations: no limitations History of Present Illness HPI Narrative: 67-year-old female with history of hypertension, prior traumatic subdural hematoma along with blowout fracture from a fall patient presents with complaint of fall 2 days ago. She was getting off a boat had a lot of objects in her arms tripped on a concrete dock and fell forward unable to catch herself and hit her right. She states she was not knocked out. She has had some mild headache for the past 2 days, she has felt a little nauseated and dizzy been able to do normal activities. She states no vision changes. No difficulty with movement of her eye. No neck pain. She states no chest pain or shortness of breath no other GI or urinary symptoms no numbness tingling or weakness. She is little concerned about bleed as she has had a prior traumatic subdural and a blowout fracture of her orbit in the past after a similar type fall. Patient was encouraged by family to be evaluated and presents. She states no daily a nticoagulants. She does note she is still taking telmisartan but is out of her HCTZ 12.5 mg tablets in amlodipine 5 mg tablets. She has an allergy to codeine. No tobacco, occasional alcohol, no recreational drugs. Related Data Home Medications Medication Instructions Recorded Confirmed MULTIVITAMIN (Multivitamin ##0 08/17/03 04/08/18 -) [VIT C] ##0 08/17/03 04/08/18 amlodipine 5 mg tablet 5 mg PO DAILY 04/19/23 04/19/23 hydrochlorothiazide 12.5 mg tablet 12.5 mg PO DAILY 04/19/23 04/19/23 telmisartan 40 mg tablet 40 mg PO DAILY 04/19/23 04/19/23 Previous Rx's Medication Instructions Recorded ondansetron 4 mg disintegrating 4 mg PO Q8H PRN nausea and 05/14/21 tablet vomiting #20 tabs ondansetron 4 mg disintegrating 4 mg PO Q8H PRN nausea and 05/14/21 tablet vomiting #20 tabs mupirocin 2 % topical ointment 1 applic topical TID #15 grams 10/07/22 estradiol 0.01% (0.1 mg/gram) 1 g vaginal 3XW #42.5 grams 04/27/23 vaginal cream amlodipine 5 mg tablet 5 mg PO DAILY #30 tabs 11/18/23 hydrochlorothiazide 12.5 mg tablet 12.5 mg PO DAILY #30 tabs 11/18/23 Allergies Allergy/AdvReac Type Severity Reaction Status Date / Time codeine Allergy Verified 11/18/23 14:34 Review of Systems Review of Systems ROS Unobtainable: All systems reviewed & are unremarkable except as noted in HPI and below Patient History Social History Smoking Status: Never smoker Smoking Status: Never smoker alcohol intake frequency: 0-2 drinks per day Substance Use Type: does not use Exam Narrative Exam Narrative: GEN: Patient appears in mild distress. HEAD: No evidence of trauma, patient does have periorbital ecchymosis of the right eye, no gasca sign bilaterally. NECK: Nontender, painless range of motion, trachea midline Negative Nexus criteria, no midline line tenderness, distracting injury, altered mental status, neuro deficit, recent EtOH. EYES: PERRLA, EOMI ENT: External inspection normal other than above, no bony tenderness. Trachea is midline, TM's are normal no hemotypanum, Nares are clear, no septal hematoma, no dental or oral injury, airway is normal and with normal occlusion, No bony tenderness RESP: Chest is nontender and has symmetric movement, no ecchymosis, breath sounds are normal no crackles, wheezes or rales CVS: Heart sounds are normal, no murmur noted, No JVD. ABG/GI: Nontender, soft, normal bowel sounds, no distention, no organomegaly, pelvic rock is negative NEURO: Oriented AOx3, neuro is grossly intact, sensation and motor is normal all 4 extremities moving, cranial nerves II through XII are intact, GCS is 15 PSYCH: Normal mood and affect SKIN: Intact, warm and dry, no crepitus and without decubitus BACK: No CVA tenderness, no vertebral tenderness, no step-off's, no crepitus EXT: Atraumatic, hips are nontender, no pedal edema, normal color and temperature, normal range of motion of extremities with normal tendon exam, 2+ pulses in all four extremities Initial Vital Signs Initial Vital Signs: Vital Signs Temperature 98.2 F 11/18/23 14:28 Pulse Rate 82 11/18/23 14:28 Respiratory Rate 16 11/18/23 14:28 Blood Pressure 158/84 H 11/18/23 14:28 Pulse Oximetry 100 11/18/23 14:28 Oxygen Delivery Method Room Air 11/18/23 14:[address] [place] [address] Head Rule Age <16 years old: No Any sign of basilar skull fracture (hemotympanum, raccoon eyes, Gasca's sign, CSF geo-/rhinorrhea): Yes (Right periorbital ecchymosis) Age greater or equal to 65 years: Yes GCS [place] coma scale eye opening: Spontaneous [place] coma scale verbal response: Orientated [place] coma scale motor response: Obey commands [place] coma scale total score: 15 Course Orders Ordered: ED Orders 11/18/23 14:37 CT cervical spine wo con Stat CT facial bones wo con Stat CT head/brain wo con Stat Vital Signs Vital signs: Vital Signs - 8 hr 11/18/23 14:28 11/18/23 15:06 11/18/23 15:07 Temperature 98.2 F Pulse Rate 82 78 Respiratory Rate 16 Blood Pressure 158/84 H 153/84 H Pulse Oximetry 100 91 Oxygen Delivery Method Room Air 11/18/23 15:07 11/18/23 15:30 11/18/23 15:30 Temperature Pulse Rate 79 67 Respiratory Rate 16 Blood Pressure 136/73 Pulse Oximetry 98 97 Oxygen Delivery Method 11/18/23 16:00 11/18/23 16:01 11/18/23 16:01 Temperature Pulse Rate 75 74 Respiratory Rate Blood Pressure 168/83 H Pulse Oximetry 99 99 Oxygen Delivery Method 11/18/23 16:43 11/18/23 16:43 11/18/23 17:00 Temperature Pulse Rate 73 70 Respiratory Rate 16 Blood Pressure 147/76 H Pulse Oximetry 96 Oxygen Delivery Method 11/18/23 17:00 11/18/23 17:30 11/18/23 17:30 Temperature Pulse Rate 68 Respiratory Rate 21 Blood Pressure 143/67 H 158/79 H Pulse Oximetry 96 Oxygen Delivery Method MDM - Fall MDM Narrative Medical decision making narrative: 67-year-old female with a history of prior traumatic subdural on no anticoagulation, patient had a fall with periorbital ecchymosis over the right. Does describe some headache, nausea and dizziness no vomiting no loss of consciousness she has been ambulating in participating in normal activities. Head CT, CT facial bone and CT cervical spine are negative for acute change, cervical spondylosis is noted on CT facial bone. Patient's C-spine was cleared. She does note she is out of her HCTZ as well as amlodipine and discussed we will refill these. She does have her telmisartan available. Discharge Plan Departure Patient Disposition: Home Clinical Impression: Traumatic periorbital ecchymosis of right eye, Fall, Concussion Instructions: DI for Concussion Activity Restrictions/Additional Instructions: Follow up as needed. Your imaging including your head CT, facial bones and cervical spine do not show any bleed or fractures. You likely have a little bit of a concussion. Continue to advance your activity as tolerated. You can continue with Tylenol and/or Aleve as needed for headaches. A refill for your blood pressure medication including your amlodipine and hydrochlorothiazide were sent to [facility] in [place] Please return for severe headaches new neck pain, sudden vision changes, new numbness tingling or weakness, loss of bowel or bladder control, persistent vomiting, chest pain or shortness of breath or other new or concerning changes. Prescriptions: New amlodipine 5 mg tablet 5 mg PO DAILY Qty: 30 0RF hydrochlorothiazide 12.5 mg tablet 12.5 mg PO DAILY Qty: 30 0RF No Action mupirocin 2 % ointment 1 applic topical TID Qty: 15 0RF MULTIVITAMIN (Multivitamin -) Qty: 0 [VIT C] Qty: 0 telmisartan 40 mg tablet 40 mg PO DAILY amlodipine 5 mg tablet 5 mg PO DAILY hydrochlorothiazide 12.5 mg tablet 12.5 mg PO DAILY estradiol 0.01 % (0.1 mg/gram) cream 1 g vaginal 3XW Qty: 42.5 12RF Rx Instructions: Apply 1 g PV hs x7 days, then PV hs 3 nights weekly ondansetron 4 mg tablet,disintegrating 4 mg PO Q8H PRN (Reason: nausea and vomiting) Qty: 20 0RF ondansetron 4 mg tablet,disintegrating 4 mg PO Q8H PRN (Reason: nausea and vomiting) Qty: 20 0RF Referrals: Trish Bowen PA-C [Primary Care Provider] - Stand Alone Forms: Patient Portal/API
== END 2023-11-18 18:00 | disposition home or self-care (01) ==
PROVIDERS: Emergency Provider Emergency Medicine; Family Provider Physician Assistant; PCP Student in an Organized Health Care Education/Training Program
DX: S06.0X0A Concussion without loss of consciousness, initial encounter (principal); S00.11XA Contusion of right eyelid and periocular area, initial encounter; W01.10XA Fall on same level from slipping, tripping and stumbling with subsequent striking against unspecified object, initial encounter
CPT/HCPCS: 70450; 70486; 72125; 99281; 99284

== ENCOUNTER 2024-04-06 09:04 | Emergency (ER) | payer OTHER, SELFPAY ==
[2024-04-06] VITALS (20 sets, daily range): BP systolic 135–185; BP diastolic 70–93; PULSE 74–133; RESP 14–38; TEMP 36.6; O2SAT 91–99; BMI 26.6
--- NOTE | 2024-04-06 09:11 | DI.RAD.S_ITS ---
PROCEDURE: XR WRIST RT MIN 3V INDICATIONS: wrist pain TECHNIQUE: 4 views of the wrist were acquired. COMPARISON: CR, XR WRIST 3+ VIEWS RIGHT, 03/24/2017, 15:37. MR, MR WRIST RIGHT WITH/WITHOUT CONTRAST, 03/25/2017, 15:18. FINDINGS: Bones: Comminuted dorsally angulated distal radial and ulnar metaphyseal fractures. Questionable lucency extension into the joint space of the distal radius although not well seen. There is lucency and irregularity within the scaphoid bone appearing to correlate to prior fracture and a vascular necrosis. Soft tissues: No suspicious soft tissue calcifications. IMPRESSION: Comminuted dorsally angulated distal radial and ulna metaphyseal fractures as above. Dictated by: Larissa Diez M.D. on 04/06/2024 at 10:10 Approved by: Larissa Diez M.D. on 04/06/2024 at 10:12
--- NOTE | 2024-04-06 09:15 | DI.RAD.S_ITS ---
PROCEDURE: XR ANKLE RT MIN 3V INDICATIONS: fall, ankle pain TECHNIQUE: 3 views of the ankle were acquired. COMPARISON: None. FINDINGS: Bones: No fractures or dislocations. Ankle mortise is normally aligned. No suspicious bony lesions. Surgical screw is present traversing the distal tibia. Hardware is intact without hardware fracture or periprosthetic lucency to suggest loosening. Alignment is stable. Soft tissues: No tibiotalar joint effusion. Achilles tendon appears normal. IMPRESSION: No visualized acute fracture or dislocation. However, if clinical concern and/or pain persist, short interval imaging followup in 7-10 days is recommended, as occult injury cannot be definitively excluded. Dictated by: Larissa Diez M.D. on 04/06/2024 at 9:59 Approved by: Larissa Diez M.D. on 04/06/2024 at 9:59
--- NOTE | 2024-04-06 09:22 | ED.FALL ---
HPI - Fall General Chief Complaint: Trauma Stated Complaint: poss r arm/ribs/r ankle fracture Time Seen by Provider: 04/06/24 09:10 Source: patient Mode of arrival: Ambulatory History of Present Illness HPI Narrative: 68-year-old woman with a history of hypertension, prior significant trauma from falls including blowout fracture of the eye, subdural hematoma, concussions she most recently in November of this year. She feels like she is back to her baseline. She was taking the garbage out last night slipped on the incline of the driveway landing on her right side. She is complaining of significant right wrist right side of her chest right upper abdomen and right ankle pain. She was able to get up, get back to her own house, get into bed and this morning when she woke up pain was increasing and she comes in for further evaluation. She has not complaining of neck pain and specifically states she did not hit her head. This was absolutely a mechanical fall. She has not complaining of recent fevers, cough, chills, palpitations, headaches, nausea, vomiting or diarrhea. Patient is not on an anticoagulant Related Data Home Medications Medication Instructions Recorded Confirmed MULTIVITAMIN (Multivitamin ##0 08/17/03 04/08/18 -) [VIT C] ##0 08/17/03 04/08/18 amlodipine 5 mg tablet 5 mg PO DAILY 04/19/23 04/19/23 hydrochlorothiazide 12.5 mg tablet 12.5 mg PO DAILY 04/19/23 04/19/23 telmisartan 40 mg tablet 40 mg PO DAILY 04/19/23 04/19/23 Previous Rx's Medication Instructions Recorded ondansetron 4 mg disintegrating 4 mg PO Q8H PRN nausea and 05/14/21 tablet vomiting #20 tabs ondansetron 4 mg disintegrating 4 mg PO Q8H PRN nausea and 05/14/21 tablet vomiting #20 tabs mupirocin 2 % topical ointment 1 applic topical TID #15 grams 10/07/22 estradiol 0.01% (0.1 mg/gram) 1 g vaginal 3XW #42.5 grams 04/27/23 vaginal cream amlodipine 5 mg tablet 5 mg PO DAILY #30 tabs 11/18/23 hydrochlorothiazide 12.5 mg tablet 12.5 mg PO DAILY #30 tabs 11/18/23 ondansetron 4 mg disintegrating 4 mg PO Q8H PRN nausea and 04/06/24 tablet vomiting #14 tabs oxycodone-acetaminophen 5 mg-325 1 tab PO Q6H PRN pain #14 tabs 04/06/24 mg tablet Allergies Allergy/AdvReac Type Severity Reaction Status Date / Time codeine Allergy Verified 04/06/24 09:15 Review of Systems Review of Systems Narrative: Pertinent positive and negative findings as per HPI Patient History Medical History (Updated 04/06/24 @ 11:33 by Hannah Edge MD) Hypertension Social History Smoking Status: Never smoker Smoking Status: Never smoker alcohol intake frequency: holidays/special occasions only Substance Use Type: does not use Exam Initial Vital Signs Initial Vital Signs: Vital Signs Temperature 97.9 F 04/06/24 09:05 Pulse Rate 90 04/06/24 09:05 Respiratory Rate 14 04/06/24 09:05 Blood Pressure 154/73 H 04/06/24 09:05 Pulse Oximetry 99 04/06/24 09:05 Oxygen Delivery Method Room Air 04/06/24 09:05 General: Healthy appearing, in mild distress. Able to give a complete and coherent history. Well-nourished well-developed HEENT: Moist mucous membranes, normal sclera with reactive pupils, Neck: No midline tenderness no trapezius muscle tenderness Respiratory: Lungs are clear to auscultation, slight splinting secondary to right posterior rib pain and right upper abdominal pain. Cardiac: Regular rate and rhythm no murmurs no bruits Abdomen: Soft, no pelvic ring tenderness, no tenderness along the lower lumbar spine. Able to go through range of motion both hips without significant pain Skin: Warm and dry, no rashes Neurologic: Grossly neurologically intact with no obvious asymmetries or abnormalities Extremities: Right wrist with an obvious fracture, bruising started, slight decreased capillary refill to the fingers. She is able to gently move the fingers and feel me touching them. Tenderness and contusion with swelling to the right lateral malleolus without other injury to lower extremity. Neurovascularly intact distally Psych: Cooperative, appropriate insight and affect Procedures Orthopedic Fracture Reduction right wrist: Time of procedure: 11:52 Time Out Performed: Yes Side: right Fracture Reduction Location: radius and ulna Analgesia: procedural sedation Technique: direct manipulation Post Reduction X-rays Demonstrate: acceptable reduction Post-reduction neuro exam: intact Post-reduction vascular exam: intact Splint Applied: Yes Patient Tolerated Procedure: Well Procedural Sedation Time of procedure: 11:51 Consent signed: Yes Time out performed: Yes Indication: fracture/dislocation reduction ASA Class: II Mallampati Airway Classification: Class II Preparation: cardiac surgeon applied, pulse oximeter, capnometry used, supplemental O2 applied, suction/airway equipment at bedside and IV secured Ketamine dose (mg): 75 Intraservice time/total sedation time (min): 11 ED Sedation Level: Moderate (Concious) Patient Tolerated Procedure: Well Complications: none Course Orders Ordered: ED Orders 04/06/24 09:11 XR wrist RT min 3V Stat 04/06/24 09:15 XR ankle RT min 3V Stat 04/06/24 09:21 CT chest abd pel w con Stat 04/06/24 09:24 Complete Blood Count AUTO DIFF Stat Comprehensive Metabolic Panel Stat 04/06/24 11:49 XR wrist RT 2V Stat 04/06/24 11:59 Ct Wrist right without con Stat Hydromorphone HCl (Hydromorphone 0.5 Mg Inj) 0.5 mg IV Q15MIN PRN PRN Reason: Pain, Last Admin: 04/06/24 11:00 Dose: 0.5 mg Documented By: Admin: 04/06/24 09:40 Dose: 0.5 mg Documented By: CTS Discontinued Medications Ketamine HCl (Ketamine 500 Mg/5 Ml Inj) 75 mg 1 mg/kg (75 mg) IV NOW ONE Stop: 04/06/24 11:01 Last Admin: 04/06/24 11:40 Dose: 75 mg Documented By: CTS Vital Signs Vital signs: Vital Signs - 8 hr 04/06/24 09:05 04/06/24 09:13 04/06/24 09:14 Temperature 97.9 F Pulse Rate 90 88 90 Respiratory Rate 14 Blood Pressure 154/73 H Pulse Oximetry 99 98 98 Oxygen Delivery Method Room Air 04/06/24 09:14 04/06/24 11:08 04/06/24 11:08 Temperature Pulse Rate 80 Respiratory Rate 18 Blood Pressure 154/73 H 142/73 H Pulse Oximetry 92 Oxygen Delivery Method 04/06/24 11:10 04/06/24 11:15 04/06/24 11:20 Temperature Pulse Rate 85 77 76 Respiratory Rate 14 16 17 Blood Pressure Pulse Oximetry 95 92 91 Oxygen Delivery Method 04/06/24 11:25 04/06/24 11:30 04/06/24 11:30 Temperature Pulse Rate 74 77 Respiratory Rate 16 15 Blood Pressure 135/70 Pulse Oximetry 91 92 Oxygen Delivery Method 04/06/24 11:35 04/06/24 11:40 04/06/24 11:40 Temperature Pulse Rate 80 87 Respiratory Rate 21 21 Blood Pressure 146/76 H Pulse Oximetry 92 96 Oxygen Delivery Method 04/06/24 11:45 04/06/24 11:49 04/06/24 11:50 Temperature Pulse Rate 128 H 130 H Respiratory Rate 38 H Blood Pressure 181/93 H 185/91 H Pulse Oximetry 95 95 Oxygen Delivery Method 04/06/24 11:50 04/06/24 11:55 04/06/24 11:55 Temperature Pulse Rate 133 H 116 H Respiratory Rate 26 H 20 Blood Pressure 177/84 H Pulse Oximetry 95 95 Oxygen Delivery Method 04/06/24 11:59 04/06/24 12:00 04/06/24 12:00 Temperature Pulse Rate 124 H 108 H Respiratory Rate 24 20 Blood Pressure 172/83 H Pulse Oximetry 95 Oxygen Delivery Method 04/06/24 12:16 04/06/24 12:16 04/06/24 12:20 Temperature Pulse Rate 97 H 96 H Respiratory Rate Blood Pressure 156/74 H Pulse Oximetry 95 94 Oxygen Delivery Method MDM - Fall Lab Data 04/06/24 09:24 04/06/24 09:24 Labs: Lab Results 04/06/24 Range/Units 09:24 WBC 14.0 H (4.5-11.0) X10^3/uL RBC 4.40 (4.0-5.2) X10^6/uL Hgb 14.0 (12.0-16.0) g/dL Hct 41.5 (36-46) % MCV 94.3 (80-100) fL MCH 31.8 (26-34) PG MCHC 33.7 (30-36) % RDW 13.5 (11.6-14.8) % Plt Count 344 (150-400) X10^3/uL Neut % (Auto) 89.7 H (50-75) % Lymph % (Auto) 6.3 L (25-40) % Nye % (Auto) 3.5 (3-14) % Eos % (Auto) 0.0 L (2-4) % Baso % (Auto) 0.5 (0-2) % Neut # (Auto) 40713 H (6381-0588) /uL Lymph # (Auto) 900 L (8103-0444) /uL Nye # (Auto) 500 (0-900) /uL Eos # (Auto) 0 (0-450) /uL Baso # (Auto) 100 (0-100) /uL Sodium 132 L (137-145) mmol/L Potassium 3.6 (3.4-5.1) mmol/L Chloride 96 L (98-107) mmol/L Carbon Dioxide 23 (22-32) mmol/L BUN 11 (7-17) mg/dL Creatinine 0.50 L (0.52-1.04) mg/dL Estimated GFR > 60 (>60) mL/min BUN/Creatinine Ratio 22.0 (6-22) Glucose 153 H (80-110) mg/dL Calcium 9.1 (8.4-10.2) mg/dL Total Bilirubin 0.7 (0.2-1.3) mg/dL AST 49 H (14-36) IU/L ALT 37 H (<35) IU/L Alkaline Phosphatase 103 (38-126) U/L Total Protein 7.9 (6.3-8.2) g/dL Albumin 4.9 (3.5-5.0) g/dL Globulin 3.0 (1.7-4.1) g/dL Albumin/Globulin Ratio 1.6 (1.0-2.8) Point of Care Testing Test Results Not applicable Imaging Data X-ray wrist: Radiologist's Impression: PROCEDURE: XR WRIST RT MIN 3V INDICATIONS: wrist pain TECHNIQUE: 4 views of the wrist were acquired. COMPARISON: CR, XR WRIST 3+ VIEWS RIGHT, 03/24/2017, 15:37. MR, MR WRIST RIGHT WITH/WITHOUT CONTRAST, 03/25/2017, 15:18. FINDINGS: Bones: Comminuted dorsally angulated distal radial and ulnar metaphyseal fractures. Questionable lucency extension into the joint space of the distal radius although not well seen. There is lucency and irregularity within the scaphoid bone appearing to correlate to prior fracture and a vascular necrosis. Soft tissues: No suspicious soft tissue calcifications. IMPRESSION: Comminuted dorsally angulated distal radial and ulna metaphyseal fractures as above. Dictated by: Larissa Diez M.D. on 04/06/2024 at 10:10 CT chest abdomen and pelvis: Radiologist's Impression: PROCEDURE: CT CHEST ABD PEL W CON INDICATIONS: fall, right chest and upper abd pain TECHNIQUE: After the administration of intravenous contrast, 5 mm thick sections acquired from the lung apices to the symphysis. 5 mm coronal and sagittal reformats were performed, with additional 7 mm MIP reformats through the lungs. For radiation dose reduction, the following was used: automated exposure control, adjustment of mA and/or kV according to patient size. COMPARISON: None. FINDINGS: Image quality: Excellent. CHEST: Lower Neck: No enlarged lymph nodes. Thyroid: No thyroid nodules which require sonographic follow up, per consensus guidelines. Axillae: No enlarged lymph nodes. Chest Wall: Right anterior lateral 4th, 5th, 6th, 7th rib fractures are present. Displacement is most prominent within the 5th and 6th ribs. Lungs and Pleura: No pneumothorax or pleural effusions. No consolidation or suspicious nodules. Heart: Heart size is normal. No pericardial effusion. Thoracic Vessels: The aorta and pulmonary arteries demonstrate normal size. Mediastinum and Nubia: No enlarged lymph nodes. Esophagus: No wall thickening. Mild hiatal hernia. ABDOMEN: Liver: No solid mass. Steatosis. Gallbladder: No radiopaque gallstones or wall thickening. Biliary ducts: No biliary dilation. Pancreas: No ductal dilation. Spleen: Size is within normal limits. Adrenal Glands: No adrenal nodules. Kidneys and Ureters: No hydronephrosis. No solid mass. No complex renal cystic lesion which requires follow up. Stomach and Bowel: Normal colonic caliber, without significant wall thickening. Peritoneum: No abnormal intraperitoneal fluid. No free air. Ventral Wall: No significant ventral hernia. Abdominal Nodes: No retroperitoneal or mesenteric adenopathy by size criteria. Vessels: Aorta and inferior vena cava are normal in size. PELVIS: Pelvic Organs: Unremarkable. Bladder: No bladder wall thickening, accounting for underdistention. Pelvic Nodes: No enlarged lymph nodes. Miscellaneous: No inguinal hernias are seen. Bones: No aggressive osseous abnormality. IMPRESSION: Right lateral 4th through 7th rib fractures with displacement most prominent at the 5th and 6th ribs. No pneumothorax. Dictated by: Larissa Diez M.D. on 04/06/2024 at 10:47 MDM Narrative Medical decision making narrative: CC: Fall, right-sided pain Complicating co-morbidities: Hypertension Data collected from: patient Social determinants of health that may influence the patients condition: Accident was greater than 12 hours ago and patient got herself to bed, actually went to work this morning until she finally decided the pain in her wrist was significant enough she needed evaluation. She has taken no pain medications Medical records reviewed: Primary care notes reviewed Differential considered: Wrist fracture, multiple rib fractures, hemopneumothorax, liver contusion, subcapsular hematoma, vertebral fractures, ankle fractures Exam documented above, pertinent findings include: Patient is alert and focused. Tender along right posterior ribs posterior axillary line into the upper abdomen. Obviously deformed right wrist with decreased blood flow to the fingers but not completely occluded. She does have sensation. Tenderness with ecchymosis right side of the ankle Lab Test results independently reviewed as above. Pertinent findings: CBC shows Slight leukocytosis no anemia Chemistries minor abnormalities only Imaging studies independently reviewed: Ankle shows no acute fractures Wrist with a complex distal radial and ulnar fractures dorsally angulated, comminuted Consultations: Discussion with Dr. Shahid, did recommend CT scan prior to discharge, we will need outpatient orthopedic follow up with surgical intervention for definitive treatment Treatments: Parenteral narcotics Sedation, wrist reduction Incentive spirometer given Re-evaluations: 1250 doing well post sedation Discussion: 68-year-old woman with a fall last night for anterior rib fractures without hemopneumothorax. Complicated right wrist fracture that has been reduced. This is going to need surgical intervention and patient is aware. She will need to contact [facility] for outpatient follow up. She has had rib fractures within the last couple of years and does have an incentive spirometer home. She is aware of how and why to use it. She is remarkably self-sufficient and believe she will do well at home. We discussed pain medication. I have given her a prescription for Percocet that she can use as needed and if it does cause nausea there is also prescription for Zofran. At this point there is no indication for hospitalization or additional imaging. She is safe for discharge Discharge Plan Departure Patient Disposition: Home Clinical Impression: Multiple fractures of rib involving four or more ribs Closed fracture of right wrist Qualifiers: Encounter type: initial encounter Qualified Code(s): S62.101A - Fracture of unspecified carpal bone, right wrist, initial encounter for closed fracture Ankle sprain Qualifiers: Encounter type: initial encounter Involved ligament of ankle: unspecified ligament Laterality: right Qualified Code(s): S93.401A - Sprain of unspecified ligament of right ankle, initial encounter Instructions: DI for Rib Fracture, DI for Wrist Fracture, DI for Moderate Sedation Activity Restrictions/Additional Instructions: Thank you for coming in today You did manage to hurt herself with your fall last night. You have 4 rib fractures on the right side. Fortunately you did not collapse your lung and you do not have any blood collecting around her lung. It is going to take 6 weeks for the fractures to heal. You have been through this before. Using the incentive spirometer 2-3 large inhalations every hour while you are awake can help keep your lungs completely inflated and avoid complications like pneumonia. You shattered your right wrist. This is going to need surgery. We straightened it out a bit in the emergency department to make sure that the blood flow was getting to all of your fingers. We also did a CT scan to help the orthopedic surgeon anticipate what type of intervention you are going to need. I did speak with Dr Shahid, our orthopedic surgeon on-call today. She asked that you call the office at [phone] to schedule an ER follow up appointment for your wrist fracture. Using 400 mg of ibuprofen (2 [id number] pills) and 1 Tylenol every 6 hours can be very helpful in controlling pain. For severe pain adding 1 Percocet to 400 mg of ibuprofen can be helpful. This is a narcotic and will cause constipation. Please take it with a stool softener. I have also given you a prescription for Zofran if the narcotic causes you significant nausea. Keeping your arm elevated we will help. Prescriptions were electronically transmitted to [facility] If you find that you are getting worse or develop any new symptoms, please feel free to return to the emergency department for further evaluation. Prescriptions: New oxycodone-acetaminophen 5-325 mg tablet 1 tab PO Q6H PRN (Reason: pain) Qty: 14 0RF ondansetron 4 mg tablet,disintegrating 4 mg PO Q8H PRN (Reason: nausea and vomiting) Qty: 14 0RF No Action mupirocin 2 % ointment 1 applic topical TID Qty: 15 0RF MULTIVITAMIN (Multivitamin -) Qty: 0 [VIT C] Qty: 0 telmisartan 40 mg tablet 40 mg PO DAILY amlodipine 5 mg tablet 5 mg PO DAILY hydrochlorothiazide 12.5 mg tablet 12.5 mg PO DAILY estradiol 0.01 % (0.1 mg/gram) cream 1 g vaginal 3XW Qty: 42.5 12RF Rx Instructions: Apply 1 g PV hs x7 days, then PV hs 3 nights weekly amlodipine 5 mg tablet 5 mg PO DAILY Qty: 30 0RF hydrochlorothiazide 12.5 mg tablet 12.5 mg PO DAILY Qty: 30 0RF ondansetron 4 mg tablet,disintegrating 4 mg PO Q8H PRN (Reason: nausea and vomiting) Qty: 20 0RF ondansetron 4 mg tablet,disintegrating 4 mg PO Q8H PRN (Reason: nausea and vomiting) Qty: 20 0RF Referrals: Trish Bowen PA-C [Primary Care Provider] - Stand Alone Forms: Patient Portal/API/Survey
[2024-04-06 09:36] LABS: Add Manual Diff / Slide Review NO; Basophils Absolute Auto 100 /uL (0-100); Basophils Percent Auto 0.5 % (0-2); Eosinophils Absolute Auto 0 /uL (0-450); Hematocrit 41.5 % (36-46); Lymphocytes Absolute Auto 900 /uL (1100-4500); Lymphocytes Percent Auto 6.3 % (25-40); Mean Corpuscular HGB Conc 33.7 % (30-36); Mean Corpuscular Hemoglobin 31.8 PG (26-34); Mean Corpuscular Volume 94.3 fL (80-100); Monocytes Absolute Auto 500 /uL (0-900); Monocytes Percent Auto 3.5 % (3-14); Neutrophils Absolute Auto 12600 /uL (1500-7000); Neutrophils Percent Auto 89.7 % (50-75); Platelet Count 344 X10^3/uL (150-400); Red Cell Distribution Width 13.5 % (11.6-14.8)
[2024-04-06] MEDS: HYDROMORPHONE 0.5 MG INJ IV ×2 (09:40→11:00)
[2024-04-06 09:47] LABS: Alanine Aminotransferase 37 IU/L (<35); Albumin 4.9 g/dL (3.5-5.0); Albumin Globulin Ratio 1.6 (1.0-2.8); Alkaline Phosphatase 103 U/L (38-126); Aspartate Aminotransferase 49 IU/L (14-36); Bilirubin Total 0.7 mg/dL (0.2-1.3); Blood Urea Nitrogen 11 mg/dL (7-17); Calcium 9.1 mg/dL (8.4-10.2); Carbon Dioxide 23 mmol/L (22-32); Chloride 96 mmol/L (98-107); Estimated Glomerular Filt Rate > 60 mL/min (>60); Glucose 153 mg/dL (80-110); HEMOLYSIS < 15 (0-50); Potassium 3.6 mmol/L (3.4-5.1); Sodium 132 mmol/L (137-145); Total Protein 7.9 g/dL (6.3-8.2)
[2024-04-06] MEDS: KETAMINE 500 MG/5 ML INJ 75 MG IV (11:40)
--- NOTE | 2024-04-06 11:49 | DI.RAD.S_ITS ---
PROCEDURE: XR WRIST RT 2V INDICATIONS: reduction wrist TECHNIQUE: To views of the wrist were acquired. COMPARISON: [facility], CR, XR WRIST RT MIN 3V, 04/06/2024, 9:26. FINDINGS: Bones: Status post reduction of the highly common comminuted and displaced right distal radius and ulna fractures. Mid scaphoid waist fracture and ulnar styloid fracture also noted. No suspicious bony lesions. Moderate to severe osteopenia. Soft tissues: No suspicious soft tissue calcifications. Interval casting. IMPRESSION: Mild interval improved alignment of the distal radial and ulnar fractures status post reduction, with interval casting. Dictated by: Gilberto Hernandez M.D. on 04/06/2024 at 12:24 Approved by: Gilberto Hernandez M.D. on 04/06/2024 at 12:39
--- NOTE | 2024-04-06 11:59 | DI.CT.S_ITS ---
PROCEDURE: CT WRIST RIGHT WITHOUT CON INDICATIONS: RIGHT WRIST FRACTURE TECHNIQUE: Noncontrast 1 mm axial sections acquired through the carpal bones, with coronal and sagittal reformats. COMPARISON: [facility], CR, XR WRIST RT 2V, 04/06/2024, 11:45. FINDINGS: Image quality: Excellent. Bones: There is comminuted distal radial fracture extending to the metaphysis. There is slight angulation. There is no definitive fracture lucency extending to the radiocarpal joint space. However, fracture lucencies do extend to the radial ulnar joint space. There is a comminuted distal ulna fracture extending to the metaphysis. Fracture lucencies extend to the articular surface. Slight angulation is present. There is 66 change in partial collapse of the scaphoid bone with nonunion of the inferior pole. Soft tissues: Soft tissue edema is present at the wrist. IMPRESSION: Comminuted angulated impacted distal radial and ulnar fractures as above. 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 Dictated by: Larissa Diez M.D. on 04/06/2024 at 13:35 Approved by: Larissa Diez M.D. on 04/06/2024 at 13:40
--- NOTE | 2024-04-06 12:35 | PC.NURSE ---
Pt splinted with ortho glass, sling applied. OOB to BR with steady gait.
== END 2024-04-06 13:09 | disposition home or self-care (01) ==
PROVIDERS: Emergency Provider Emergency Medicine; Family Provider Physician Assistant; PCP Student in an Organized Health Care Education/Training Program
DX: S22.41XA Multiple fractures of ribs, right side, initial encounter for closed fracture (principal); S62.101A Fracture of unspecified carpal bone, right wrist, initial encounter for closed fracture; S93.401A Sprain of unspecified ligament of right ankle, initial encounter; M54.2 Cervicalgia; R10.10 Upper abdominal pain, unspecified; R07.89 Other chest pain; W01.0XXA Fall on same level from slipping, tripping and stumbling without subsequent striking against object, initial encounter
CPT/HCPCS: 25605; 29125; 36415; 71260; 73100; 73110; 73200; 73610; 74177; 80053; 85025; 96374; 96376; 99152; 99285; 99291; J1171

== ENCOUNTER 2024-04-11 09:19 | Day surgery (SDC) | payer OTHER, SELFPAY ==
[2024-04-09 13:32] VITALS: BMI 25.1
[2024-04-11] VITALS (7 sets, daily range): BP systolic 150–159; BP diastolic 84–94; PULSE 75–95; RESP 15–92; TEMP 36.4–37.8; O2SAT 15–99; BMI 27.4
[2024-04-11] MEDS: LACTATED RINGERS 1,000 ML 42 ML IV ×2 (10:39→12:28)
--- NOTE | 2024-04-11 11:07 | PM.PREOP ---
Pre-operative Note Interval Note History & Physical reviewed/Exam performed by Physician: Yes Changes to H&P: No
[2024-04-11] MEDS: CEFAZOLIN 2 GM/100 ML PREMIX 100 ML IV (11:47)
--- NOTE | 2024-04-11 12:01 | SUR.OPER ---
Supine on padded OR bed, head on pillow, lt arm secured on padded arm board at <90 degrees abduction, legs uncrossed, safety belt at thigh. rt arm prepped free.
[2024-04-11] MEDS: BUPIVACAINE 0.25% (PF) 30 ML, EPINEPHrine 0.15 MG INJ (12:12)
[2024-04-11] MEDS: ONDANSETRON 4 MG/2 ML INJ IV (13:45)
[2024-04-11] MEDS: hydrOXYzine 50 MG/ML INJ 25 MG IM (13:48)
[2024-04-11] MEDS: TRAMADOL 50 MG TABLET PO (13:51)
--- NOTE | 2024-04-11 14:01 | PM.OP.1 ---
Operative Date/Time/Diagnoses Date of procedure: 04/11/24 Time of procedure: 12:00 Pre-op diagnosis: Displaced distal radius and ulna fractures Osteoporotic wrist fracture Post-op diagnosis: other (Displaced distal radius and ulna fractures, osteoporotic wrist fracture, DRUJ disruption) Procedure & Clinicians Procedure: Open reduction internal fixation right distal radius and ulna fractures CPT code 58868 Open reduction internal fixation distal radioulnar joint CPT code 84077 Same procedure as scheduled: Yes Indications: The patient is a 68-year-old female the fractured her right wrist on 04/06/2024 when she fell. She also sustained rib fractures she had a comminuted fractures of her right distal radius and ulna. She has been indicated for surgical fixation of her highly comminuted displaced fractures. She has a remote history of pre-existing carpal arthritis and sequelae of scaphoid nonunion this is pre-existing and documented back in 2017 at least. The risks and benefits of the procedure have been discussed with the patient and given the opportunity to ask questions. The risks of surgery include but are not limited to infection, malunion, nonunion, persistence of pain, damage to nerves and blood vessels, posttraumatic arthritis, DVT, PE, coardiopulmonary complications and . The patient expressed a thorough understanding of the risks and benefits of surgery and has elected to proceed. Consent was signed Surgeon: Nguyen Shahid Click Yes if Unassisted: Yes Anesthesia Type: General, Peripheral nerve block and Local Operative Notes Findings: Highly comminuted metadiaphyseal distal radius fracture multi fragmentary osteoporotic fracture. Additionally distal ulna fracture extremely osteoporotic distal ulna, soft bone. End gross DRUJ instability. Distal radius was stabilized with a long Arthrex volar locking plate. A Arthrex ulnar styloid plate was used on the ulnar styloid. And a 062 K-wire was used to reduce and fix the DRUJ Closure Type: primary Specimen(s): none sent Prosthetic devices, grafts, tissues, transplants, or devices: Arthrex volar locking plate with locking and nonlocking screws. Distal radius Arthrex ulnar styloid plate with locking and nonlocking screws distal ulna 062 K-wire DRUJ Estimated Blood Loss (mL): 30 Blood products transfused: none Tourniquet time (min): 82 Procedure in detail: Patient was seen in the preoperative area the site of surgery was marked informed consent confirmed. This was the right wrist. The patient was then brought back to the operating room by the anesthesia team a regional block was placed for postoperative pain control. General anesthesia was administered. The patient was positioned supine with bony prominences well padded a well-padded brachial tourniquet. A hand table was utilized. The right upper extremity was prepped and draped in standard sterile fashion a formal time-out procedure was performed confirming the patient's side and site of surgery administration of appropriate preoperative antibiotic. All were in agreement. Attention turned to the right upper extremity the Esmarch was used for exsanguination the tourniquet raised on the brachium to 250 mm of mercury. Attention was 1st turned to the distal radius fixation. The standard FCR approach was marked out on the skin and this was extended a little more proximal than typical due to the metadiaphyseal location of this highly comminuted fracture. Incision was marked out on the skin and incised through the skin with a scalpel blade. The FCR tendon sheath was opened FCR was mobilized to protect the neurovascular bundle and the floor of the FCR sheath was opened and the FPL was also mobilized ulnarly. Dissection was taken down onto the distal radius the pronator quadratus was elevated and reflected. The fracture was identified. There were several devitalized small fracture fragments. The fracture hematoma was removed was irrigated. The brachioradialis was released from the distal fracture segment. The clamps were used to pull traction and alignment and reduce the fracture and get it back out to length. This was then temporarily pinned with K-wires and checked on fluoroscopy. A long volar plate from the Arthrex set was then fit to make sure there were least 3 cortices able to be stabilized proximal to the fracture. This was then provisionally pinned in place again checked on fluoroscopy and then a nonlocking screw was placed in the oblong hole followed by a nonlocking screw distally bringing the plate to bone. Next locking screws were placed distally. The nonlocking screw distally was exchanged for a locking screw and then final locking screws were placed in the shaft. AP oblique and lateral x-rays demonstrated appropriate reduction and alignment of the distal radius fracture with sabianist of height. Attention was then turned to the highly comminuted distal ulna fracture. A separate incision was made for fixation of the distal ulna fracture this was made laterally as the border of the ulna in between the extensor carpi ulnaris and the flexor carpi ulnaris. Dissection was taken down to bone. Immediately at the fracture site was noted the distal ulnar head fragment had additional split and was incredibly osteoporotic. There was also gross instability of the DRUJ. The K-wires were used for provisional reduction of the ulna and to obtain length. Again the bone was incredibly soft. A ulnar styloid plate from the Arthrex set was applied slightly slightly volarly to reduce prominence times were placed distally and the nonlocking screw was placed in the oblong hole. Then locking screws were applied. There was still gross instability of the DRUJ so decision for open reduction of the DRUJ was made. DRUJ was unstable grossly therefore a 062 K-wire was utilized for K-wire stabilization of the DRUJ the DRUJ was held reduced and the K-wire was advanced ulnarly utilizing a hole in the plate for centralized fixation within the ulna bone and across the radius. This was confirmed on AP oblique and lateral fluoroscopy to be in the appropriate alignment then the wire was bent and cut. Wounds were thoroughly irrigated and the tourniquet was released and hemostasis was achieved. They were closed in a layered fashion with 3-0 Vicryl, 4-0 Monocryl and 4-0 nylon suture. 0.25% Marcaine with epinephrine was used for local anesthesia. A well-padded volar splint was applied. The K-wire cap was applied and the wire padded around. Drapes removed the patient was woken from anesthesia and taken to recovery room in good condition there were no immediate complications from this procedure. Counts were correct. Complications: none Post-operative Condition: stable Disposition: PACU Plan for aftercare: 1-2 lb weight-bearing on the right extremity. May wiggle fingers. May do elbow range of motion. Keep splint clean dry and intact. DRUJ pin will stay in 4-6 weeks. Can move to a forearm brace at 3 week appointment but need to protect and keep DRUJ pin for 4-6 weeks. We will leave sutures in 3 weeks.
[2024-04-11] MEDS: fentaNYL 100 MCG/2 ML INJ IV (14:07)
[2024-04-11] MEDS: IBUPROFEN 600 MG TABLET PO (14:49)
== END 2024-04-11 15:15 | disposition home or self-care (01) ==
PROVIDERS: Family Provider Physician Assistant; PCP Student in an Organized Health Care Education/Training Program; Referring Provider Orthopaedic Surgery Foot and Ankle Surgery; Visit Provider Orthopaedic Surgery Foot and Ankle Surgery
PROC: (CPT 25575; principal; 2024-04-11 11:15)
DX: S59.291A Other physeal fracture of lower end of radius, right arm, initial encounter for closed fracture (principal); S52.601A Unspecified fracture of lower end of right ulna, initial encounter for closed fracture; M80.031A Age-related osteoporosis with current pathological fracture, right forearm, initial encounter for fracture; W17.89XA Other fall from one level to another, initial encounter
CPT/HCPCS: 25575; 25676; C1713; J0171; J0690; J1100; J2250; J2405; J2704; J3010; J3410

== ENCOUNTER 2024-04-12 16:46 | Emergency (ER) | payer OTHER, SELFPAY ==
[2024-04-12 16:49] VITALS: BP 164/85; PULSE 77; RESP 16; TEMP 36.5; O2SAT 98; BMI 27.4
--- NOTE | 2024-04-12 17:17 | ED.RECABL ---
HPI - Recheck/Abnormal Lab/Rx <Bettie Lin PA-C - Last Filed: 04/12/24 17:57> General Chief Complaint: Recheck/Abnormal Lab/Rx Stated Complaint: Rt arm sx 04/11, fingers turning blue, swelling Time Seen by Provider: 04/12/24 17:17 Source: patient Mode of arrival: Ambulatory History of Present Illness HPI narrative: 68-year-old female status post ORIF yesterday with Dr. Calvillo for a right distal radius and ulna comminuted fracture. She presents with pain which she described as burning pointing to the anterior aspect of her splint, as well as some coldness to her fingers. Prior to my interview with the patient the nursing staff removed the external Mehran wrap and the coldness and tingling resolved. Her main complaint is burning underneath the Orthoglass. She is denying any fever, weakness or other complaint. All other systems are reviewed and are negative. Related Data Home Medications Medication Instructions Recorded Confirmed MULTIVITAMIN (Multivitamin ##0 08/17/03 04/08/18 -) [VIT C] ##0 08/17/03 04/08/18 amlodipine 5 mg tablet 5 mg PO DAILY 04/19/23 04/11/24 hydrochlorothiazide 12.5 mg tablet 12.5 mg PO DAILY 04/19/23 04/11/24 telmisartan 40 mg tablet 40 mg PO DAILY 04/19/23 04/11/24 ibuprofen 600 mg tablet 600 mg PO TID PRN Pain, Moderate 04/11/24 04/11/24 Previous Rx's Medication Instructions Recorded mupirocin 2 % topical ointment 1 applic topical TID #15 grams 10/07/22 estradiol 0.01% (0.1 mg/gram) 1 g vaginal 3XW #42.5 grams 04/27/23 vaginal cream ondansetron 4 mg disintegrating 4 mg PO Q8H PRN nausea and 04/06/24 tablet vomiting #14 tabs oxycodone-acetaminophen 5 mg-325 1 tab PO Q6H PRN pain #14 tabs 04/06/24 mg tablet ibuprofen 600 mg tablet 600 mg PO TID PRN pain #60 tabs 04/11/24 tramadol 50 mg tablet 50 mg PO Q6H PRN pain #40 tabs 04/11/24 Allergies Allergy/AdvReac Type Severity Reaction Status Date / Time codeine Allergy Vomiting Verified 04/11/24 10:02 hydrocodone Allergy Vomiting Verified 04/11/24 10:02 ketamine AdvReac Hallucinati Verified 04/11/24 10:02 ng Patient History <Bettie Lin PA-C - Last Filed: 04/12/24 17:57> Medical History History of fracture of rib Hx of fracture of face bones Hx of fracture of clavicle Hx of fracture of wrist Subdural hematoma Hypertension Social History household members: none Smoking Status: Never smoker alcohol intake: current Smoking Status: Never smoker alcohol intake frequency: a few times a week Substance Use Type: does not use and marijuana Exam <Bettie Lin PA-C - Last Filed: 04/12/24 17:57> Initial Vital Signs Initial Vital Signs: Vital Signs Temperature 97.7 F 04/12/24 16:49 Pulse Rate 77 04/12/24 16:49 Respiratory Rate 16 04/12/24 16:49 Blood Pressure 164/85 H 04/12/24 16:49 Pulse Oximetry 98 04/12/24 16:49 Oxygen Delivery Method Room Air 04/12/24 16:49 Vital signs reviewed and are normal except for elevated systolic reading. Const Other: Seated, no distress. Resp Auscultation: clear to auscultation bilaterally, no rales, no rhonchi and no wheezes Cardio Rate: regular rate Rhythm: regular rhythm Extrem Other: Plaster splint was taken down, revealing 2 postoperative incision sites that are well approximated, sterile integrity was maintained leaving the original Xeroform gauze intact. She has some swelling of the dorsal hand and fingers but has normal capillary refill, 2 point discrimination, she has good range of motion of her fingers. No clinical findings to suggest infection. There was some sanguinous staining on the 4x4s that were taken down by all within normal limits. <Henry Samaniego MD - Last Filed: 04/12/24 20:05> Initial Vital Signs Initial Vital Signs: Vital Signs Temperature 97.7 F 04/12/24 16:49 Pulse Rate 77 04/12/24 16:49 Respiratory Rate 16 04/12/24 16:49 Blood Pressure 164/85 H 04/12/24 16:49 Pulse Oximetry 98 04/12/24 16:49 Oxygen Delivery Method Room Air 04/12/24 16:49 Procedures <Bettie Lin PA-C - Last Filed: 04/12/24 17:57> Orthopedic Splinting/Casting Injury #1: Time of procedure: 17:40 Side: right Upper Extremity Injury Location: forearm Post splinting neuro exam: intact Post splinting vascular exam: intact Additional Comments: Original plaster splint was utilized, copious Webril was applied and all voids were padded. She feels comfortable. Distal neurovascular remains intact. Course <Bettie Lin PA-C - Last Filed: 04/12/24 17:57> Consultations Consultation #1: Discussed the case with Dr. Vigil, on-call orthopedist to get permission to take down the splint to directly observe the postoperative site. He said this was fine and to use additional padding when I re-splint her. Vital Signs Vital signs: Vital Signs - 8 hr 04/12/24 16:49 04/12/24 17:20 04/12/24 17:30 Temperature 97.7 F Pulse Rate 77 68 Respiratory Rate 16 Blood Pressure 164/85 H 121/64 Pulse Oximetry 98 94 Oxygen Delivery Method Room Air 04/12/24 17:30 04/12/24 18:36 Temperature Pulse Rate 77 77 Respiratory Rate 18 Blood Pressure Pulse Oximetry 96 98 Oxygen Delivery Method Room Air <Henry Samaniego MD - Last Filed: 04/12/24 20:05> Vital Signs Vital signs: Vital Signs - 8 hr 04/12/24 16:49 04/12/24 17:20 04/12/24 17:30 Temperature 97.7 F Pulse Rate 77 68 Respiratory Rate 16 Blood Pressure 164/85 H 121/64 Pulse Oximetry 98 94 Oxygen Delivery Method Room Air 04/12/24 17:30 04/12/24 18:36 Temperature Pulse Rate 77 77 Respiratory Rate 18 Blood Pressure Pulse Oximetry 96 98 Oxygen Delivery Method Room Air MDM - Recheck/Abnormal Lab/Rx <Bettie Lin PA-C - Last Filed: 04/12/24 17:57> MDM Narrative Medical decision making narrative: Splint was completely taken down, sterile integrity was maintained at the incision site with a Xeroform gauze remaining intact, sterile dressing was reapplied over this, additional Webril was applied padding all areas, the plaster splint was utilized as it contoured perfectly. Reinforced with more Webril and 2 Mehran wraps. Distal neurovascular remains intact, she feels comfortable in his without any pain. No clinical findings to suggest compartment syndrome, postoperative wound infection, or new injury. She had a little bit of swelling and was resplinted and feels comfortable. I have asked her to contact her orthopedist and have continued follow up as previously scheduled. Highly encouraged to elevate as much as possible, she may ice directly over the splint, pain relievers as previously prescribed. Do not hesitate to return to the emergency department if you have any issues with the splint or any new worrisome symptoms. Discharge Plan Departure Patient Disposition: Home Clinical Impression: Pain in right forearm Instructions: DI for Fracture Activity Restrictions/Additional Instructions: A new splint was applied, please follow up with your orthopedist as previously scheduled. Elevate as much as possible, ice directly over the splint, please seek medical attention if you have any new issues with the splint develop any numbness, tingling, cold sensation, worsening burning or any other worrisome symptoms. Prescriptions: No Action mupirocin 2 % ointment 1 applic topical TID Qty: 15 0RF MULTIVITAMIN (Multivitamin -) Qty: 0 [VIT C] Qty: 0 telmisartan 40 mg tablet 40 mg PO DAILY amlodipine 5 mg tablet 5 mg PO DAILY hydrochlorothiazide 12.5 mg tablet 12.5 mg PO DAILY estradiol 0.01 % (0.1 mg/gram) cream 1 g vaginal 3XW Qty: 42.5 12RF Rx Instructions: Apply 1 g PV hs x7 days, then PV hs 3 nights weekly oxycodone-acetaminophen 5-325 mg tablet 1 tab PO Q6H PRN (Reason: pain) Qty: 14 0RF ondansetron 4 mg tablet,disintegrating 4 mg PO Q8H PRN (Reason: nausea and vomiting) Qty: 14 0RF ibuprofen 600 mg Tablet 600 mg PO TID PRN (Reason: Pain, Moderate) tramadol 50 mg tablet 50 mg PO Q6H PRN (Reason: pain) Qty: 40 0RF Rx Instructions: postop exempt ibuprofen 600 mg tablet 600 mg PO TID PRN (Reason: pain) Qty: 60 0RF Referrals: Trish Bowen PA-C [Primary Care Provider] - Stand Alone Forms: Patient Portal/API/Survey ED Sign-out <Henry Samaniego MD - Last Filed: 04/12/24 20:05> Cosign ED Attending Arthur Attestation: I was immediately available in the department for consultation. This documentation has been reviewed and I agree with assessment and plan. Supervised by Henry Samaniego MD
[2024-04-12 17:20] VITALS: PULSE 68; O2SAT 94
[2024-04-12 17:30] VITALS: BP 121/64; PULSE 77; O2SAT 96
--- NOTE | 2024-04-12 17:54 | PC.NURSE ---
Provider removed splint, redressed, sterile non-adherent pads and new padding. Existing plaster form placed on forearm and sophia wrap applied. Clean, dry, intact and good CMS. Pt tolerated procedure well.
[2024-04-12 18:36] VITALS: PULSE 77; RESP 18; O2SAT 98
== END 2024-04-12 18:37 | disposition home or self-care (01) ==
PROVIDERS: Emergency Provider Physician Assistant Medical; Family Provider Physician Assistant; PCP Student in an Organized Health Care Education/Training Program
DX: G89.18 Other acute postprocedural pain (principal); M79.631 Pain in right forearm
CPT/HCPCS: 29125; 99281; 99282

== ENCOUNTER → 2024-05-03 10:48 | Outpatient (CLI) | payer OTHER, SELFPAY ==
--- NOTE | 2024-05-03 10:50 | DI.RAD.S_ITS ---
PROCEDURE: XR DEXA AXIAL SKELETON INDICATIONS: osteoporosis COMPARISON: [facility], CR, XR DEXA AXIAL SKELETON, 07/01/2021, 11:22. FINDINGS: Lumbar Spine: Bone mineral density 0.766 g/cm2, T score -2.6, previously -2.4. Left Hip: Bone mineral density 0.716 g/cm2, T score -1.8, previously -1.9. Left Femoral Neck: Bone mineral density 0.590 g/cm2, T score -2.3, previously -1.9. Right Hip: Bone mineral density 0.716 g/cm2, T score -1.9, previously -1.9. Right Femoral Neck: Bone mineral density 0.631 g/cm2, T score -2.0, previously -1.8. Fracture Risk Calculation (when applicable): 10-year fracture risk of a major osteoporotic fracture 21 percent and of a hip fracture 5.3 percent. (T score greater or equal to -1.0 to: NORMAL) (T score from -1.1 to -2.4: OSTEOPENIA) (T score less than or equal to -2.5: OSTEOPOROSIS) IMPRESSION: 1. Osteoporosis of the lumbar spine. 2. Osteopenia of the left hip and femoral neck, although the femoral neck is approaching osteoporosis. 3. Osteopenia of the right hip and femoral neck. Follow-up guidelines as follows: Osteoporosis: Consider a repeat DEXA and Vertebral Fracture Assessment (VFA) exam in 2 years or sooner if medically necessary, to reassess this patient's status. Osteopenia: Consider a repeat DEXA in 2-3 years to reassess this patient's status, or if there is a new clinical indication. Normal: Consider a repeat DEXA in 5 years or sooner, or if there is a new clinical indication. All treatment decisions require clinical judgment and consideration of individual patient factors, including patient preferences, comorbidities, previous drug use, risk factors not captured in the FRAX model (e.g., frailty, falls, vitamin D deficiency, increased bone turnover, interval significant decline in bone density ) and possible under- or over-estimation of fracture risk by FRAX. In addition, the NOF Guide recommends that FDA-approved medical therapies be considered in postmenopausal women and men age >= 50 years with a: * Hip or vertebral (clinical or morphometric) fracture * T-score of <=-2.5 at the spine or hip * Ten-year fracture probability by FRAX of >= 3% for hip fracture or >=20% for major osteoporotic fracture. People with diagnosed cases of osteoporosis or at high risk for fracture should have regular bone mineral density tests. For patients eligible for Medicare, routine testing is allowed once every 2 years. The testing frequency can be increased to one year for patients who have rapidly progressing disease, those who are receiving or discontinuing medical therapy to restore bone mass, or have additional risk factors. Dictated by: Valdez Conley M.D. on 05/04/2024 at 16:26 Approved by: Valdez Conley M.D. on 05/04/2024 at 16:28
== END ==
PROVIDERS: Family Provider Physician Assistant; Referring Provider Orthopaedic Surgery Foot and Ankle Surgery; Visit Provider Orthopaedic Surgery Foot and Ankle Surgery
DX: Z13.820 Encounter for screening for osteoporosis (principal); M81.0 Age-related osteoporosis without current pathological fracture
CPT/HCPCS: 77080

== ENCOUNTER → 2024-06-05 10:41 | Outpatient (CLI) | payer OTHER, SELFPAY ==
--- NOTE | 2024-06-05 10:42 | DI.CT.S_ITS ---
PROCEDURE: CT UE RT WO CON INDICATIONS: Closed fracture of right wrist TECHNIQUE: Noncontrast 1 mm axial sections acquired through the carpal bones, with coronal and sagittal reformats. COMPARISON: [facility], CT, CT WRIST RIGHT WITHOUT CON, 04/06/2024, 12:11. [facility] [place], RG, WRIST COMP MIN 3VW (RT), 05/28/2024, 9:15. FINDINGS: Image quality: Diagnostic. Bones: Patient is status post ORIF of previously noted comminuted , impacted and displaced distal radial and ulnar fractures with surgical hardware in place. Overall wrist alignment has improved compared to previous study. No evidence of hardware loosening or failure. Compared to previous study, there is small amount of callus formation and partial bony union at distal radial fracture site. No significant callus formation or bony union is noted at distal ulnar fracture site concerning for delayed union. Old proximal scaphoid waist fracture is seen with increased sclerosis involving proximal segment consistent with avascular necrosis not significantly changed in appearance compared to prior study. Intraosseous cyst involving mid to distal scaphoid is also noted. No other fracture or dislocation. Wrist joint osteoarthritic changes are seen. Soft tissues: No abnormal soft tissue calcifications. No full-thickness wrist tendon rupture. No soft tissue mass or drainable fluid collection. IMPRESSION: 1. Post ORIF changes in distal radius and ulna. No evidence of hardware loosening or failure. Improved wrist alignment compared to previous CT study. 2. Small amount of callus formation and bony union at distal radial fracture site. No significant callus formation or bony union is noted at distal ulnar fracture site. Finding is concerning for delayed union. 3. 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 4. No new fracture or dislocation. Wrist joint osteoarthritis. No gross wrist soft tissue abnormalities. Dictated by: Joselito Lane M.D. on 06/05/2024 at 13:16 Approved by: Joselito Lane M.D. on 06/05/2024 at 13:24
== END ==
PROVIDERS: Family Provider Physician Assistant; PCP Family Medicine; Referring Provider Orthopaedic Surgery Foot and Ankle Surgery; Visit Provider Orthopaedic Surgery Foot and Ankle Surgery
DX: S62.101D Fracture of unspecified carpal bone, right wrist, subsequent encounter for fracture with routine healing (principal); M19.031 Primary osteoarthritis, right wrist; Z96.7 Presence of other bone and tendon implants; Z87.81 Personal history of (healed) traumatic fracture
CPT/HCPCS: 73200